=== PATIENT | female | born 1945 | race Caucasian/White ===

== ENCOUNTER → 2017-09-26 15:42 | Outpatient (CLI) | payer MEDICARE, SELFPAY ==
--- NOTE | 2017-09-26 15:48 | XR_ITS ---
XR chest 2V HISTORY: ITS.REASON: FEVER,PERSISTENT DISCHARGE FROM TRACH ORDERING PHYSICIAN: Hema Velazquez PATIENT AGE: 72 years COMPARISON: 02/23/2014 FINDINGS: There is a tracheostomy tube present in satisfactory position. Unremarkable cardiovascular structures. No lobar consolidation or collapse is evident. Clips are present of the left lower hemithorax prior mastectomy. Degenerative changes thoracic spine. A PEG tube is also present. IMPRESSION: 1. PEG tube and gastrostomy tube present. 2. No acute finding 3. Prior left mastectomy
== END ==
PROVIDERS: PCP Internal Medicine; Visit Provider Internal Medicine
DX: R50.81 Fever presenting with conditions classified elsewhere (principal); J95.09 Other tracheostomy complication
CPT/HCPCS: 71046

== ENCOUNTER → 2017-09-27 12:40 | Outpatient (REF) | payer MEDICARE, SELFPAY ==
[2017-09-27 12:45] LABS: Adenovirus F 40/41, stool Not Detected (NotDetected); Astrovirus Not Detected (NotDetected); Campylobacter Not Detected (NotDetected); Clostridium Difficile A/B, PCR Not Detected (NotDetected); Cryptosporidium Not Detected (NotDetected); Cyclospora Cayetanesis Not Detected (NotDetected); Entamoeba histolytica Not Detected (NotDetected); Enteroaggregative E coli Not Detected (NotDetected); Enteropathogenic E coli Not Detected (NotDetected); Enterotoxigenic E coli Not Detected (NotDetected); Giardia lamblia Not Detected (NotDetected); Norovirus Not Detected (NotDetected); Plesimonas Shigalloides, PCR Not Detected (NotDetected); Rotavirus A Not Detected (NotDetected); Salmonella, PCR Not Detected (NotDetected); Sapovirus Not Detected (NotDetected); Shiga-like toxin E coli Not Detected (NotDetected); Shigella Enterovasive E coli Not Detected (NotDetected); Vibrio Cholerae Not Detected (NotDetected); Vibrio, PCR Not Detected (NotDetected); Yersinia Entercolitica, PCR Not Detected (NotDetected)
[2017-09-27 14:17] LABS: Occult Blood,Stool Negative (Negative)
== END ==
LOC: LAB 12:40
PROVIDERS: Visit Provider Internal Medicine
DX: R19.7 Diarrhea, unspecified (principal)
CPT/HCPCS: 82272; 87205; 87507; G0328

== ENCOUNTER 2017-09-28 13:07 | Emergency (ER) | payer MEDICARE, SELFPAY ==
[2017-09-28 13:31] VITALS: BP 135/64; PULSE 59; RESP 17; TEMP 37.2; O2SAT 99; BMI 25.4
[2017-09-28 13:37] VITALS: BMI 27.4
--- NOTE | 2017-09-28 13:48 | XR_ITS ---
XR chest 2V HISTORY: ITS.REASON: cough and hemoptysis ORDERING PHYSICIAN: Kristi Marks MD PATIENT AGE: 72 years COMPARISON: 09/26/2017 FINDINGS: Tracheostomy tube remains in place. Lungs remain clear with chronic changes in the right upper lobe. Prior left mastectomy. Degenerative change thoracic spine. Normal heart size. IMPRESSION: No change with no acute finding. Tracheostomy tube remains in place
--- NOTE | 2017-09-28 13:50 | HMH.EDSOB ---
ED Disposition Clinical Impression: Hemoptysis, Tracheostomy complication, DVT (deep venous thrombosis), Renal insufficiency Disposition: Home, Self-Care Condition on Discharge: Fair Additional Instructions: 1- reduce elquis to 2.5 po bid. 2- no deep agreesive suctions. 3- right and left side chest percussion. 4- allow the patient to cough. 5- finish omnicewf. 6- see Dr Velazquez in AM. 7- return if needed. - Critical Care Critical Care Time: No Attestation: On , the high probability of a clinically significant, sudden or life threatening deterioration of the following system(s) required my full and direct attention, intervention and personal management. The time I documented below is in addition to time spent performing reported procedures but includes the following listed in this critical care notation. Medical Decision Making - Medical Records Medical records reviewed: Yes: I reviewed the patient's medical records. Vital Signs: 09/28/17 13:31 Temperature 99.0 F Temperature Source Oral Pulse Rate [Right Brachial] 59 L Respiratory Rate 17 Blood Pressure [Right Arm] 135/64 Blood Pressure Mean [Right Arm] 87 Blood Pressure Source [Right Arm] Automatic Cuff Blood Pressure Position [Right Arm] Sitting 02 Sat by Pulse Oximetry 99 Oxygen Delivery Method Trach Collar - Lab Data Lab Results 09/28/17 13:43: PT 10.9, INR 1.01, APTT 28.5 09/28/17 13:45: WBC 3.9 L, RBC 3.47 L, Hgb 10.5 L, Hct 30.7 L, MCV 88.4, MCH 30.3, MCHC 34.2, RDW 16.6, Plt Count 182, MPV 8.0, Neut % (Auto) 53.0, Lymph % (Auto) 37.5, [place] % (Auto) 7.4, Eos % (Auto) 1.7, Baso % (Auto) 0.5, Neut # (Auto) 2.1, Lymph # (Auto) 1.5, [place] # (Auto) 0.3, Eos # (Auto) 0.1, Baso # (Auto) 0.0 09/28/17 13:45: Sodium 134 L, Potassium 4.2, Chloride 99, Carbon Dioxide 29, Anion Gap 10.2, BUN 48 H, Creatinine 1.14 H, Estimated Creat Clear 52, Estimated GFR 47 L, Est GFR ( Amer) 57 L, Glucose 107 H, Calcium 8.6, Total Bilirubin 0.2, AST 21, ALT 35, Alkaline Phosphatase 152 H, Total Protein 6.8, Albumin 3.2 L, Globulin 3.6 H, Albumin/Globulin Ratio 0.9 L Result diagrams: 09/28/17 13:45 09/28/17 13:45 Orders (Tests/Meds): ORDERS Category Date Time Status Lactic Acid Stat Lab 09/28/17 13:45 Received Rapid Influenza A&B Antigens Stat Lab 09/28/17 13:41 Ordered Blood Culture Stat Micro 09/28/17 14:11 Ordered Blood Culture Stat Micro 09/28/17 14:11 Ordered - Charly Inquiry Pt receiving controlled substance: No Charly was queried for this patient: No Medical Decision Making Narrative: 72 years old with the chronic renal disease she is not a candidate for CTA at this point. No active bleeding. Discussed with the patient and her daughter we would be risking acute renal failure if we use a dye for a vascular study. Meanwhile she is on anticoagulation with elquis 5 mg BId and aggressive suction, this seems to be the culprit reason for her hemoptysis at this point. After weighing the pros and cons we decided to be conservative use a regular chest x-ray basic labs and change dissection technique, addition to chest percussion. I sopke with Dr. Velazquez her pcp who agreed with above plan and reducing Eliquis to 2.5 twice daily Resp/SOB HPI - General Chief Complaint: Upper Respiratory Infection Stated Complaint: BLEEDING OUT OF HER TRACH Mode of Arrival: Ambulatory Limitations: pt has a trach Description of Symptoms (Recalled from ER Triage Doc. by RN): pt was recently in the hospital at , had a traceostomy placed in july. reports bad cough for the last few days, with blood tinged mucous . daughter reports pt went to see pcp Dr. Velazquez two days ago, had a chest xray, was reported negative for pneumonia. reports mild body aches and low grade fever. - History of Present Illness 72 yrs old white female cancer survival 10 years ago. She underwent 2 left mandibular reconstructive surgery in the winter 2016. it was comp
--- NOTE | 2017-09-28 13:53 | ED_ITS ---
ED Disposition Clinical Impression: Hemoptysis, Tracheostomy complication, DVT (deep venous thrombosis), Renal insufficiency Disposition: Home, Self-Care Condition on Discharge: Fair Additional Instructions: 1- reduce elquis to 2.5 po bid. 2- no deep agreesive suctions. 3- right and left side chest percussion. 4- allow the patient to cough. 5- finish omnicewf. 6- see Dr Velazquez in AM. 7- return if needed. - Critical Care Critical Care Time: No Attestation: On , the high probability of a clinically significant, sudden or life threatening deterioration of the following system(s) required my full and direct attention, intervention and personal management. The time I documented below is in addition to time spent performing reported procedures but includes the following listed in this critical care notation. Medical Decision Making - Medical Records Medical records reviewed: Yes: I reviewed the patient's medical records. Vital Signs: 09/28/17 13:31 Temperature 99.0 F Temperature Source Oral Pulse Rate [Right Brachial] 59 L Respiratory Rate 17 Blood Pressure [Right Arm] 135/64 Blood Pressure Mean [Right Arm] 87 Blood Pressure Source [Right Arm] Automatic Cuff Blood Pressure Position [Right Arm] Sitting 02 Sat by Pulse Oximetry 99 Oxygen Delivery Method Trach Collar - Lab Data Lab Results 09/28/17 13:43: PT 10.9, INR 1.01, APTT 28.5 09/28/17 13:45: WBC 3.9 L, RBC 3.47 L, Hgb 10.5 L, Hct 30.7 L, MCV 88.4, MCH 30.3, MCHC 34.2, RDW 16.6, Plt Count 182, MPV 8.0, Neut % (Auto) 53.0, Lymph % ( Auto) 37.5, [place] % (Auto) 7.4, Eos % (Auto) 1.7, Baso % (Auto) 0.5, Neut # (Auto ) 2.1, Lymph # (Auto) 1.5, [place] # (Auto) 0.3, Eos # (Auto) 0.1, Baso # (Auto) 0.0 09/28/17 13:45: Sodium 134 L, Potassium 4.2, Chloride 99, Carbon Dioxide 29, Anion Gap 10.2, BUN 48 H, Creatinine 1.14 H, Estimated Creat Clear 52, Estimated GFR 47 L, Est GFR ( Amer) 57 L, Glucose 107 H, Calcium 8.6, Total Bilirubin 0.2, AST 21, ALT 35, Alkaline Phosphatase 152 H, Total Protein 6.8, Albumin 3.2 L, Globulin 3.6 H, Albumin/Globulin Ratio 0.9 L Result diagrams: 09/28/17 13:45 09/28/17 13:45 Orders (Tests/Meds): ORDERS Category Date Time Status Lactic Acid Stat Lab 09/28/17 13:45 Received Rapid Influenza A&B Antigens Stat Lab 09/28/17 13:41 Ordered Blood Culture Stat Micro 09/28/17 14:11 Ordered Blood Culture Stat Micro 09/28/17 14:11 Ordered - Charly Inquiry Pt receiving controlled substance: No Charly was queried for this patient: No Medical Decision Making Narrative: 72 years old with the chronic renal disease she is not a candidate for CTA at this point. No active bleeding. Discussed with the patient and her daughter we would be risking acute renal failure if we use a dye for a vascular study. Meanwhile she is on anticoagulation with elquis 5 mg BId and aggressive suction , this seems to be the culprit reason for her hemoptysis at this point. After weighing the pros and cons we decided to be conservative use a regular chest x- ray basic labs and change dissection technique, addition to chest percussion. I sopke with Dr. Velazquez her pcp who agreed with above plan and reducing Eliquis to 2.5 twice daily Resp/SOB HPI - General Chief Complaint: Upper Respiratory Infection Stated Complaint: BLEEDING OUT OF HER TRACH Mode of Arrival: Ambulatory
[2017-09-28 14:05] LABS: Alanine Aminotransferase 35 U/L (12-78); Albumin Level 3.2 gm/dL (3.4-5.0); Albumin/Globulin Ratio 0.9 (1.1-1.8); Alkaline Phosphatase 152 U/L (46-116); Anion Gap 10.2 mEq/L (5-15); Aspartate Amino Transferase 21 U/L (15-37); Bilirubin,Total 0.2 mg/dL (0.2-1.0); Blood Urea Nitrogen 48 mg/dL (7-18); Calcium 8.6 mg/dL (8.5-10.1); Carbon Dioxide 29 mmol/L (21.0-32.0); Chloride 99 mmol/L (98-107); Creatinine Clearance Estimated 52 mL/min (0-300); Creatinine,Serum 1.14 mg/dL (0.55-1.02); Estimated Glomerular Filt Rate 47 ml/min (>60); GFR (African American) 57 ML/MIN (>60); Globulin 3.6 gm/dl (1.3-3.2); Glucose 107 mg/dL (74-106); Potassium 4.2 mmoL/L (3.5-5.1); Sodium 134 mmol/L (136-145); Total Protein,Serum 6.8 gm/dL (6.4-8.2)
[2017-09-28 14:10] LABS: Basophils % 0.5 % (0.1-2.0); Eosinophils # 0.1 K/mm3 (0.0-0.4); Eosinophils % 1.7 % (0.1-12.0); Hematocrit 30.7 % (37.0-47.0); Hemoglobin 10.5 g/dL (12.2-16.2); Lymphocytes # 1.5 K/mm3 (0.7-4.5); Lymphocytes % 37.5 K/mm3 (10-50); Mean Corpuscular HGB Conc 34.2 g/dL (31.8-35.4); Mean Corpuscular Hemoglobin 30.3 pg (27.0-31.2); Mean Corpuscular Volume 88.4 fl (81-99); Monocytes # 0.3 K/mm3 (0.1-1.0); Monocytes % 7.4 % (1.7-9.3); Neutrophils # 2.1 K/mm3 (1.8-7.8); Platelet Count 182 K/mm3 (142-424); Red Blood Count 3.47 M/mm3 (4.20-5.40); Red Cell Distribution Width 16.6 % (11.5-17.5); White Blood Count 3.9 K/mm3 (4.8-10.8)
[2017-09-28 14:28] LABS: Activated Partial Thrombo Time 28.5 seconds (23.6-34.0); INR 1.01 (0.9-1.1); Prothrombin Time 10.9 seconds (9.4-11.8)
[2017-09-28 14:56] VITALS: BP 133/53; PULSE 88; RESP 16; TEMP 36.8; O2SAT 96
== END 2017-09-28 14:57 | disposition home or self-care (01) ==
PROVIDERS: Emergency Provider Emergency Medicine; PCP Internal Medicine
DX: R04.2 Hemoptysis (principal); J95.00 Unspecified tracheostomy complication; N28.9 Disorder of kidney and ureter, unspecified; Z79.01 Long term (current) use of anticoagulants; Z88.1 Allergy status to other antibiotic agents; Z79.899 Other long term (current) drug therapy; Z86.718 Personal history of other venous thrombosis and embolism
CPT/HCPCS: 71046; 80053; 85025; 85610; 85730; 87040; 99283

== ENCOUNTER → 2018-09-14 16:48 | Outpatient (CLI) | payer MEDICARE, SELFPAY | PROVIDERS: Visit Provider Internal Medicine | DX: L02.213 Cutaneous abscess of chest wall (principal) | CPT/HCPCS: 87070; 87205 ==

== ENCOUNTER → 2021-05-14 14:25 | Outpatient (CLI) | payer MEDICARE, SELFPAY ==
[2021-05-14 14:52] LABS: Basophils % 0.5 % (0.1-2.0); Eosinophils # 0.1 K/mm3 (0.0-0.4); Hematocrit 34.8 % (37.0-47.0); Hemoglobin 11.3 g/dL (12.2-16.2); Lymphocytes # 1.3 K/mm3 (0.7-4.5); Lymphocytes % 19.7 % (10-50); Mean Corpuscular HGB Conc 32.5 g/dL (31.8-35.4); Mean Corpuscular Hemoglobin 31.2 pg (27.0-31.2); Mean Corpuscular Volume 96.2 fl (81-99); Mean Platelet Volume 9.7 fl (7.4-10.4); Monocytes # 0.3 K/mm3 (0.1-1.0); Monocytes % 4.9 % (1.7-9.3); Neutrophils % 72.9 % (37.0-80.0); Platelet Count 210 K/mm3 (142-424); Red Blood Count 3.61 M/mm3 (4.20-5.40); Red Cell Distribution Width 17.4 % (11.5-17.5); White Blood Count 6.8 K/mm3 (4.8-10.8)
[2021-05-14 15:36] LABS: Alanine Aminotransferase 9 U/L (12-78); Albumin Level 3.9 g/dl (3.5-5.0); Albumin/Globulin Ratio 1.6 (1.1-1.8); Alkaline Phosphatase 81 U/L (38-126); Anion Gap 11.3 mEq/L (5-15); Aspartate Amino Transferase 26 U/L (14-36); Bilirubin,Total 0.4 mg/dl (0.2-1.3); Blood Urea Nitrogen 39 mg/dl (7-17); Calcium 9.4 mg/dl (8.4-10.2); Carbon Dioxide 32 mmol/L (22.0-30.0); Chloride 99 mmol/L (98-107); Chol/HDL Ratio 4.4 (1-3.5); Cholesterol 154 mg/dl (140-200); Estimated Glomerular Filt Rate 48 ml/min (>60); GFR (African American) 59 ML/MIN (>60); Globulin 2.4 g/dL (1.3-3.2); Glucose 80 mg/dl (74-100); HDL Cholesterol 35 mg/dl (40-60); Potassium 4.3 mmoL/L (3.5-5.1); Sodium 138 mmol/L (136-145); Total Protein,Serum 6.3 g/dl (6.3-8.2); Triglycerides 146 mg/dl (30-150); Uric Acid 3.1 mg/dl (2.5-6.2); VLDL Cholesterol 29 mg/dL (0-40)
[2021-05-14 15:47] LABS: Direct LDL Cholesterol 84.33 mg/dL (100-129)
[2021-05-14 16:29] LABS: Hemoglobin A1C 5.5 % (4.0-6.0)
== END ==
PROVIDERS: Visit Provider Internal Medicine
DX: I25.10 Atherosclerotic heart disease of native coronary artery without angina pectoris (principal); I10 Essential (primary) hypertension; E11.59 Type 2 diabetes mellitus with other circulatory complications; E78.5 Hyperlipidemia, unspecified; N31.9 Neuromuscular dysfunction of bladder, unspecified; N18.9 Chronic kidney disease, unspecified
CPT/HCPCS: 80053; 80061; 83036; 84550; 85025

== ENCOUNTER → 2021-06-21 13:30 | Outpatient (CLI) | payer MEDICARE, SELFPAY | PROVIDERS: PCP Internal Medicine; Visit Provider Nurse Practitioner | DX: U07.1 COVID-19 (principal) | CPT/HCPCS: C9803; U0003; U0005 ==

== ENCOUNTER → 2021-06-23 08:04 | Outpatient (CLI) | payer MEDICARE, SELFPAY ==
[2021-06-23 08:16] VITALS: BP 114/60; PULSE 51; RESP 18; TEMP 36.5; O2SAT 100
== END ==
PROVIDERS: PCP Internal Medicine; Visit Provider Internal Medicine
DX: U07.1 COVID-19 (principal); Z23 Encounter for immunization
CPT/HCPCS: 96365

== ENCOUNTER → 2022-04-18 17:15 | Outpatient (CLI) | payer MEDICARE, SELFPAY ==
[2022-04-18 20:37] LABS: Basophils % 0.8 % (0.1-2.0); Eosinophils # 0.1 K/mm3 (0.0-0.4); Eosinophils % 2.2 % (0.1-12.0); Hematocrit 36.6 % (37.0-47.0); Lymphocytes # 1.5 K/mm3 (0.7-4.5); Lymphocytes % 26.5 % (10-50); Mean Corpuscular HGB Conc 32.7 g/dL (31.8-35.4); Mean Corpuscular Hemoglobin 33.1 pg (27.0-31.2); Mean Corpuscular Volume 101.3 fl (81-99); Mean Platelet Volume 11.4 fl (7.4-10.4); Monocytes # 0.4 K/mm3 (0.1-1.0); Monocytes % 6.7 % (1.7-9.3); Neutrophils # 3.6 K/mm3 (1.8-7.8); Neutrophils % 63.8 % (37.0-80.0); Platelet Count 178 K/mm3 (142-424); Red Blood Count 3.61 M/mm3 (4.20-5.40); Red Cell Distribution Width 15.5 % (11.5-17.5); White Blood Count 5.6 K/mm3 (4.8-10.8)
[2022-04-18 21:05] LABS: Chloride 96 mmol/L (98-107); Potassium 4.9 mmoL/L (3.5-5.1); Sodium 138 mmol/L (136-145)
[2022-04-18 21:07] LABS: Alanine Aminotransferase 13 U/L (12-78); Alkaline Phosphatase 92 U/L (38-126); Aspartate Amino Transferase 35 U/L (14-36); Bilirubin,Total 0.2 mg/dl (0.2-1.3); Blood Urea Nitrogen 34 mg/dl (7-17); Estimated Glomerular Filt Rate 54 ml/min (>60); GFR (African American) 65 ML/MIN (>60)
[2022-04-18 21:08] LABS: Albumin Level 4.2 g/dl (3.5-5.0); Anion Gap 16.9 mEq/L (5-15); Carbon Dioxide 30 mmol/L (22.0-30.0); Chol/HDL Ratio 4.5 (1-3.5); Cholesterol 167 mg/dl (140-200); Globulin 2.1 g/dL (1.3-3.2); HDL Cholesterol 37 mg/dl (40-60); Total Protein,Serum 6.3 g/dl (6.3-8.2); Triglycerides 150 mg/dl (30-150); VLDL Cholesterol 30 mg/dL (0-40)
[2022-04-18 21:14] LABS: Calcium 8.9 mg/dl (8.4-10.2); Glucose 75 mg/dl (74-100)
[2022-04-18 21:19] LABS: Direct LDL Cholesterol 85.71 mg/dL (100-129)
[2022-04-18 21:39] LABS: Thyroid Stimulating Hormone 1.78 uIU/mL (0.465-4.68)
[2022-04-18 22:11] LABS: Uric Acid 3.1 mg/dl (2.5-6.2)
[2022-04-18 22:13] LABS: Hemoglobin A1C 5.2 % (4.0-6.0)
[2022-04-20 19:01] LABS: Folate > 20.00 ng/mL; Vitamin B12 > 1000 pg/mL (239-931)
== END ==
PROVIDERS: PCP Internal Medicine; Visit Provider Internal Medicine
DX: E11.59 Type 2 diabetes mellitus with other circulatory complications (principal); I25.10 Atherosclerotic heart disease of native coronary artery without angina pectoris; I10 Essential (primary) hypertension; J44.9 Chronic obstructive pulmonary disease, unspecified; N31.9 Neuromuscular dysfunction of bladder, unspecified; M10.9 Gout, unspecified; D75.89 Other specified diseases of blood and blood-forming organs; Z85.819 Personal history of malignant neoplasm of unspecified site of lip, oral cavity, and pharynx; Z79.84 Long term (current) use of oral hypoglycemic drugs
CPT/HCPCS: 80053; 80061; 82607; 82746; 83036; 84443; 84550; 85025

== ENCOUNTER 2022-07-22 14:19 | Emergency (ER) | payer MEDICARE, SELFPAY ==
[2022-07-22] VITALS (7 sets, daily range): BP systolic 165–220; BP diastolic 75–96; PULSE 51–70; RESP 16–20; TEMP 36.8; O2SAT 98–99; BMI 22.1
--- NOTE | 2022-07-22 14:27 | CT_ITS ---
FINAL REPORT TECHNIQUE: Thin section axial CT images of the facial bones and sinuses were obtained without contrast. Coronal reformatted images were also obtained. This study was performed with techniques to keep radiation doses as low as reasonably achievable, (ALARA). Individualized dose reduction techniques using automated exposure control or adjustment of mA and/or kV according to the patient's size were employed. CLINICAL HISTORY: fall on eloquis/s/p cancer with facial reconstruct FINDINGS: CT FACIAL BONES There are bilateral nasal bone fractures displaced to the left. There is nasal soft tissue swelling with soft tissue air. The orbits are intact.The globes are intact.No sinus fluid levels are identified.No soft tissue mass is seen. There are postoperative changes throughout the mandible. There are postoperative changes of the face and neck. IMPRESSION: Bilateral nasal bone fractures displaced to the left and nasal soft tissue swelling with soft tissue air. Reviewed, Interpreted and Dictated by Bobby Restrepo III, MD Transcribed by Tequila Sibley Authenticated and [facility]
--- NOTE | 2022-07-22 14:27 | XR_ITS ---
FINAL REPORT CLINICAL HISTORY: fall, right knee pain FINDINGS: Two views of the right knee were obtained. There is no evidence of fracture or dislocation. There are postoperative changes of right fibular resection. There are mild degenerative changes. Vascular calcifications are noted. There is no evidence of joint effusion. No localized soft tissue abnormality is identified. IMPRESSION: No acute abnormality identified. Reviewed, Interpreted and Dictated by Bobby Restrepo III, MD Transcribed by Yaneth Leavitt Authenticated and [facility]
--- NOTE | 2022-07-22 14:27 | XR_ITS ---
FINAL REPORT CLINICAL HISTORY: fall, left knee pain FINDINGS: Two views of the left knee were obtained. There is no evidence of fracture or dislocation. There are postoperative changes of left fibular resection. There are mild degenerative changes in vascular calcifications are noted. There is no evidence of joint effusion. No localized soft tissue abnormality is seen. There is no evidence of foreign body. IMPRESSION: No acute abnormality identified. Reviewed, Interpreted and Dictated by Bobby Restrepo III, MD Transcribed by Yaneth Leavitt Authenticated and [facility]
--- NOTE | 2022-07-22 14:27 | XR_ITS ---
FINAL REPORT CLINICAL HISTORY: fall FINDINGS: RIGHT WRIST Three views were obtained. There is no acute fracture or dislocation. There are moderate degenerative changes at the 1st carpometacarpal joint. Mild degenerative changes are seen elsewhere. No soft tissue abnormality is identified. IMPRESSION: No acute process. Reviewed, Interpreted and Dictated by Bobby Restrepo III, MD Transcribed by Yaneth Leavitt Authenticated and . [facility]
--- NOTE | 2022-07-22 14:27 | XR_ITS ---
FINAL REPORT CLINICAL HISTORY: fall FINDINGS: LEFT HAND: 3 views of the left hand were obtained. There are moderate and severe degenerative changes. Visualized joint spaces are normally aligned. Soft tissues are unremarkable. IMPRESSION: No acute bony abnormality. Reviewed, Interpreted and Dictated by Bobby Restrepo III, MD Transcribed by Yaneth Leavitt Authenticated and [facility]
--- NOTE | 2022-07-22 14:27 | CT_ITS ---
FINAL REPORT CLINICAL HISTORY: fall on eloquis/s/p cancer with facial reconstruct FINDINGS: Axial images of the head were obtained without contrast. Coronal reformatted images were also obtained. This study was performed with techniques to keep radiation doses as low as reasonably achievable (ALARA). Individualized dose reduction techniques using automated exposure control or adjustment of mA and/or kV according to the patient's size were employed. There is generalized age-appropriate atrophy. Periventricular low-attenuation areas are seen consistent with mild chronic ischemic changes. There is no evidence of intracranial hemorrhage or mass. There is no evidence of acute infarct. There is no evidence of shift of the midline structures. IMPRESSION: Atrophy and mild periventricular chronic ischemic changes. No acute intracranial abnormality identified. Reviewed, Interpreted and Dictated by Bobby Restrepo III, MD Transcribed by Tequila Sibley Authenticated and [facility]
--- NOTE | 2022-07-22 14:27 | CT_ITS ---
FINAL REPORT CLINICAL HISTORY: fall on eloquis/s/p cancer with facial reconstruct FINDINGS: Axial CT images of the cervical spine were obtained without contrast. Sagittal and coronal reformatted images were also obtained. This study was performed with techniques to keep radiation doses as low as reasonably achievable (ALARA). Individualized dose reduction techniques using automated exposure control or adjustment of mA and/or kV according to the patient's size were employed. There is no evidence of fracture or dislocation. There is mild anterolisthesis of C3 on C4. There are moderate and severe degenerative changes with multilevel disc osteophyte complexes and multilevel neural foraminal narrowing. There is mild central canal stenosis at C5-6. No paraspinous soft tissue abnormality is seen. There is scarring in the lung apices. IMPRESSION: No fracture or acute bony abnormality identified. Reviewed, Interpreted and Dictated by Bobby Restrepo III, MD Transcribed by Tequila Sibley Authenticated and [facility]
--- NOTE | 2022-07-22 14:27 | XR_ITS ---
FINAL REPORT CLINICAL HISTORY: fall COMPARISON: 09/08/2018 FINDINGS: RIGHT SHOULDER 3 views demonstrate no acute fracture or dislocation. There are moderate degenerative changes. There is superior subluxation of the humerus. The visualized bony structures are well aligned. No soft tissue abnormality is seen. IMPRESSION: No acute process. Reviewed, Interpreted and Dictated by Bobby Restrepo III, MD Transcribed by Yaneth Leavitt Authenticated and [facility]
--- NOTE | 2022-07-22 14:27 | XR_ITS ---
FINAL REPORT CLINICAL HISTORY: fall FINDINGS: LEFT WRIST Three views were obtained. There is no acute fracture or dislocation. There are moderate degenerative changes at the 1st carpometacarpal joint. Mild degenerative changes are seen elsewhere. No soft tissue abnormality is identified. IMPRESSION: No acute process. Reviewed, Interpreted and Dictated by Bobby Restrepo III, MD Transcribed by Yaneth Leavitt Authenticated and . [facility]
--- NOTE | 2022-07-22 14:27 | XR_ITS ---
FINAL REPORT CLINICAL HISTORY: fall FINDINGS: RIGHT HAND Three views were obtained. There is no acute fracture or dislocation. There are moderate and severe degenerative changes, worse involving the 2nd 3rd digits. No soft tissue abnormality is identified. IMPRESSION: No acute process. Reviewed, Interpreted and Dictated by Bobby Restrepo III, MD Transcribed by Yaneth Leavitt Authenticated and [facility]
--- NOTE | 2022-07-22 14:30 | HMH.EDGENADL ---
Discharge Plan Disposition Patient Disposition: Home, Self-Care Condition: Fair Chief Complaint: Fall Prescriptions Prescriptions: No Action bupropion HCl (smoking deter) 150 MG Tab.Er.12h 150 mg PO DAILY prednisone 20 MG Tablet 20 mg PO DAILY tramadol [Ultram] 50 MG Tablet 50 mg PO Q4H cefdinir 125 MG/5 ML Bottle 125 mg PO BID allopurinol 300 MG Tablet 300 mg PO DAILY metoprolol succinate 25 MG Tab.Er.24h 25 mg PO DAILY ondansetron 4 MG Tab.Rapdis 4 mg sublingual Q6 PRN (Reason: Vomiting) melatonin-pyridoxine HCl (B6) 1 EACH Tablet 1 ea PO HS amlodipine-olmesartan 1 EACH Tablet 1 ea PO DAILY levetiracetam [Keppra XR] 500 MG Tab.Er.24h 500 mg PO BID apixaban [Eliquis] 5 MG Tablet 5 mg PO DAILY Referrals Follow up/Referrals: Hema Velazquez MD [Primary Care Provider] - See instructions Activity Restrictions/Add. Instructions Additional Instructions/Restrictions: At this time it was felt you are safe to be discharged home. If new or worsening symptoms please do not hesitate to return for continued evaluation. Please follow-up with your family doctor for continued evaluation of your nasal bone fracture to assess need for ENT referral when swelling resolves. Clinical Impressions Clinical Impression: Fall, Fracture closed, nasal bone Discharge ED Provider: Kendall Jerez General Adult HPI General Chief complaint: Fall Stated complaint: Fall@home 07/22 Nose/mouth pain, knee pain Time Seen by Provider: 07/22/22 14:30 History of Present Illness HPI narrative: Patient is a 77-year-old female with past medical history of throat cancer status post complete reconstruction, blood clots on Eliquis who presents emergency department for evaluation of traumatic injury sustained in a fall. Patient was pushing a trash can when she fell forward onto her face without loss of consciousness. Patient is complaining of nose pain, bilateral hand pain, right shoulder pain, bilateral knee pain. No other acute complaints at this time. Tdap up-to-date. Related Data Home Medications Medication Instructions Recorded Confirmed allopurinol 300 mg tablet 300 mg PO DAILY gout 09/28/17 09/28/17 amlodipine 5 mg-olmesartan 40 mg 1 ea PO DAILY blood pressure 09/28/17 09/28/17 tablet apixaban 5 mg tablet (Eliquis) 5 mg PO DAILY Blood thinner 09/28/17 09/28/17 bupropion HCl (smoking deter) 150 150 mg PO DAILY mood 09/28/17 09/28/17 mg tablet,12 hr sustained-release(smoking deterrent) cefdinir 125 mg/5 mL oral 125 mg PO BID Infection 09/28/17 09/28/17 suspension levetiracetam 500 mg 500 mg PO BID seizures 09/28/17 09/28/17 tablet,extended release 24 hr (Keppra XR) melatonin-pyridoxine HCl (vitamin 1 ea PO HS sleep 09/28/17 09/28/17 B6) 3 mg-10 mg tablet metoprolol succinate 25 mg 25 mg PO DAILY blood pressure 09/28/17 09/28/17 tablet,extended release 24 hr ondansetron 4 mg disintegrating 4 mg sublingual Q6 PRN Vomiting 09/28/17 09/28/17 tablet prednisone 20 mg tablet 20 mg PO DAILY Breathing problems 09/28/17 09/28/17 tramadol 50 mg tablet (Ultram) 50 mg PO Q4H Pain 09/28/17 09/28/17 Allergies Allergy/AdvReac Type Severity Reaction Status Date / Time piperacillin [From ZOSYN] Allergy Intermediate I-RASH Verified 06/23/21 09:38 tazobactam [From ZOSYN] Allergy Intermediate I-RASH Verified 06/23/21 09:38 [facility] Disclaimer: The information contained in this section may have been updated after the patient was seen, as this information can be updated by other users. Social History Smoking Status: Former smoker alcohol intake: never current occupational status: disabled Travel in the last 8 weeks: None ROS Obtained: Yes Systems reviewed as appropriate & no additional complaints except as documented Physical Exam General General appearance: alert and in no apparent distress Head Head exam: normocephalic and oth
--- NOTE | 2022-07-22 14:31 | CT_ITS ---
FINAL REPORT TECHNIQUE: Thin section axial CT images with coronal and sagittal reformats were performed through the neck. This study was performed with techniques to keep radiation doses as low as reasonably achievable (ALARA). Individualized dose reduction techniques using automated exposure control or adjustment of mA and/or kV according to the patient's size were employed. CLINICAL HISTORY: fall, cancer s/p reconstruct FINDINGS: There widespread postoperative changes of the face and anterior neck. There is fluid or debris in the hypopharynx. The nasopharynx, oropharynx and larynx are unremarkable. There are several right thyroid nodules measuring up to 8 mm. There are vascular calcifications. A presumed tracheostomy is present. There is mild scarring in the lung apices. IMPRESSION: Fluid or debris in the hypopharynx. Widespread postoperative changes of the face and anterior neck. Reviewed, Interpreted and Dictated by Bobby Restrepo III, MD Transcribed by Tequila Sibley Authenticated and [facility]
--- NOTE | 2022-07-22 14:34 | PC.NURSE ---
at bedside upon pt arrival
--- NOTE | 2022-07-22 14:36 | PC.NURSE ---
PT UNABLE TO TOLERATE C-COLLAR , TOWEL ROLL PLACED , PT GOING TO CT VIA STRETCHER
== END 2022-07-22 18:23 | disposition home or self-care (01) ==
PROVIDERS: Emergency Provider Emergency Medicine; PCP Internal Medicine
DX: S02.2XXA Fracture of nasal bones, initial encounter for closed fracture (principal); M25.561 Pain in right knee; M25.562 Pain in left knee; M25.511 Pain in right shoulder; M25.522 Pain in left elbow; M25.521 Pain in right elbow; M25.532 Pain in left wrist; M25.531 Pain in right wrist; M79.642 Pain in left hand; M79.641 Pain in right hand; R11.10 Vomiting, unspecified; I10 Essential (primary) hypertension; Z79.01 Long term (current) use of anticoagulants; Z79.52 Long term (current) use of systemic steroids; Z79.899 Other long term (current) drug therapy; Z88.8 Allergy status to other drugs, medicaments and biological substances; Z85.038 Personal history of other malignant neoplasm of large intestine; Z85.21 Personal history of malignant neoplasm of larynx; Z23 Encounter for immunization; Z87.891 Personal history of nicotine dependence
CPT/HCPCS: 70450; 70486; 70490; 72125; 73030; 73100; 73120; 73130; 73560; 90471; 90715; 99285

== ENCOUNTER → 2022-10-18 12:52 | Outpatient (CLI) | payer MEDICARE, SELFPAY ==
[2022-10-18 17:30] LABS: Basophils % 0.6 % (0.1-2.0); Eosinophils # 0.2 K/mm3 (0.0-0.4); Eosinophils % 3.7 % (0.1-12.0); Hematocrit 40.2 % (37.0-47.0); Hemoglobin 12.8 g/dL (12.2-16.2); Lymphocytes # 1.2 K/mm3 (0.7-4.5); Lymphocytes % 26.7 % (10-50); Mean Corpuscular HGB Conc 31.9 g/dL (31.8-35.4); Mean Corpuscular Hemoglobin 32.1 pg (27.0-31.2); Mean Corpuscular Volume 100.8 fl (81-99); Mean Platelet Volume 11.1 fl (7.4-10.4); Monocytes # 0.3 K/mm3 (0.1-1.0); Monocytes % 6.4 % (1.7-9.3); Neutrophils # 2.9 K/mm3 (1.8-7.8); Neutrophils % 62.4 % (37.0-80.0); Platelet Count 172 K/mm3 (142-424); Red Blood Count 3.98 M/mm3 (4.20-5.40); Red Cell Distribution Width 14.8 % (11.5-17.5); White Blood Count 4.6 K/mm3 (4.8-10.8)
[2022-10-18 17:43] LABS: Alanine Aminotransferase 17 U/L (12-78); Albumin Level 4.4 g/dl (3.5-5.0); Alkaline Phosphatase 95 U/L (38-126); Anion Gap 13.8 mEq/L (5-15); Aspartate Amino Transferase 34 U/L (14-36); Bilirubin,Total 0.6 mg/dl (0.2-1.3); Blood Urea Nitrogen 47 mg/dl (7-17); Calcium 9.3 mg/dl (8.4-10.2); Carbon Dioxide 32 mmol/L (22.0-30.0); Chloride 97 mmol/L (98-107); Chol/HDL Ratio 3.9 (1-3.5); Cholesterol 151 mg/dl (140-200); Estimated Glomerular Filt Rate 44 ml/min (>60); GFR (African American) 53 ML/MIN (>60); Globulin 2.2 g/dL (1.3-3.2); Glucose 72 mg/dl (74-100); HDL Cholesterol 39 mg/dl (40-60); Potassium 4.8 mmoL/L (3.5-5.1); Sodium 138 mmol/L (136-145); Total Protein,Serum 6.6 g/dl (6.3-8.2); Triglycerides 151 mg/dl (30-150); VLDL Cholesterol 30 mg/dL (0-40)
[2022-10-18 17:54] LABS: Direct LDL Cholesterol 77.56 mg/dL (100-129)
[2022-10-18 18:01] LABS: Hemoglobin A1C 4.9 % (4.0-6.0)
== END ==
PROVIDERS: PCP Internal Medicine; Visit Provider Internal Medicine
DX: E11.59 Type 2 diabetes mellitus with other circulatory complications (principal); I10 Essential (primary) hypertension; N18.30 Chronic kidney disease, stage 3 unspecified; N31.9 Neuromuscular dysfunction of bladder, unspecified; J44.9 Chronic obstructive pulmonary disease, unspecified; C08.0 Malignant neoplasm of submandibular gland
CPT/HCPCS: 80053; 80061; 83036; 85025

== ENCOUNTER 2023-02-21 08:36 | Day surgery (SDC) | payer MEDICARE, SELFPAY ==
[2023-02-21] VITALS (14 sets, daily range): BP systolic 142–194; BP diastolic 70–106; PULSE 55–85; RESP 17–19; O2SAT 93–100; BMI 21.7
--- NOTE | 2023-02-21 06:43 | IR_ITS ---
APPROVED REPORT Patient Location: Outpatient PROCEDURES Left heart catheterization Left ventriculogram Selective coronary angiogram INDICATION Classic angina pectoris, High pretest likelihood for coronary disease, Unable to tolerate noninvasive stress testing Informed consent was obtained prior to the procedure. COMPLICATIONS None Estimated Blood Loss: Less than 10 mls TECHNIQUE One percent lidocaine used to anesthetize the right anterior aspect of the wrist. The right radial artery was accessed via the Seldinger technique. A 6 Turkish sheath was placed in the right radial artery. 150 mg magnesium sulfate, 800 mcg of nitroglycerin, 1mg Lidocaine and 5000 U Heparin were given through the arterial sheath. The papa catheter was also used to perform left heart catheterization, left ventriculogram and selective coronary angiogram. At the end of the procedure the sheath was removed good hemostasis was achieved using Traclet band, patient was transferred to the postop holding area in stable condition. ANGIOGRAPHIC RESULTS The left main artery Large and normal The left anterior descending artery Has proximal 30% stenosis with a mid vessel 50% stenosis followed by a subtotal occlusion at the distal portion of the mid segment. There is slow filling of the distal LAD The circumflex artery Large and dominant with proximal 30% stenoses. A large first obtuse marginal artery has 40% stenoses in the proximal segment while distally there are tandem calcified 60 to 70% stenoses and a superior branch of this obtuse marginal artery. The inferior branch is 2 mm in diameter and has an ostial 90% stenosis. Distal to the first obtuse marginal artery there is an additional 40 to 50% mid circumflex artery stenosis. 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 Continue medical management. Patient has normal ejection fraction there is no advantage to attempting to revascularize the heavily calcified mid LAD subtotal occlusion. This vessel should respond favorably to medical management 2. Maximize antianginal medications 3. LDL less than 55 to be achieved with high intensity statin Electronically signed by : Bassem Gardiner MD 02/21/2023 14:57:10
[2023-02-21 10:18] LABS: Basophils % 0.4 % (0.1-2.0); Eosinophils # 0.4 K/mm3 (0.0-0.4); Eosinophils % 5.2 % (0.1-12.0); Hematocrit 37.9 % (37.0-47.0); Hemoglobin 11.9 g/dL (12.2-16.2); Lymphocytes # 1.8 K/mm3 (0.7-4.5); Lymphocytes % 25.6 % (10-50); Mean Corpuscular HGB Conc 31.3 g/dL (31.8-35.4); Mean Corpuscular Hemoglobin 31.7 pg (27.0-31.2); Mean Corpuscular Volume 101.2 fl (81-99); Mean Platelet Volume 10.2 fl (7.4-10.4); Monocytes # 0.3 K/mm3 (0.1-1.0); Neutrophils # 4.4 K/mm3 (1.8-7.8); Neutrophils % 63.8 % (37.0-80.0); Platelet Count 192 K/mm3 (142-424); Red Blood Count 3.74 M/mm3 (4.20-5.40); Red Cell Distribution Width 15.8 % (11.5-17.5); White Blood Count 6.9 K/mm3 (4.8-10.8)
[2023-02-21 10:26] LABS: Anion Gap 12.6 mEq/L (5-15); Blood Urea Nitrogen 41 mg/dl (7-17); Calcium 9.8 mg/dl (8.4-10.2); Carbon Dioxide 31 mmol/L (22.0-30.0); Chloride 101 mmol/L (98-107); Creatinine Clearance Estimated 37 mL/min (50-200); Estimated Glomerular Filt Rate 48 ml/min (>60); GFR (African American) 58 ML/MIN (>60); Glucose 94 mg/dl (74-100); INR 0.98 (0.9-1.1); Potassium 4.6 mmoL/L (3.5-5.1); Prothrombin Time 10.6 seconds (10.1-12.5); Sodium 140 mmol/L (136-145)
== END 2023-02-21 15:59 | disposition home or self-care (01) ==
PROVIDERS: PCP Internal Medicine; Visit Provider Internal Medicine
DX: I77.6 Arteritis, unspecified (principal); R00.1 Bradycardia, unspecified; R06.00 Dyspnea, unspecified; R07.9 Chest pain, unspecified; R42 Dizziness and giddiness; I25.118 Atherosclerotic heart disease of native coronary artery with other forms of angina pectoris; Z87.891 Personal history of nicotine dependence; I25.82 Chronic total occlusion of coronary artery; Z79.01 Long term (current) use of anticoagulants; Z79.899 Other long term (current) drug therapy
CPT/HCPCS: 80048; 85025; 85610; 93458; 99152; C1725; C1769; J1644; Q9967

== ENCOUNTER → 2023-04-28 12:24 | Outpatient (CLI) | payer MEDICARE, SELFPAY ==
[2023-04-28 13:31] LABS: Hemoglobin A1C 5.4 % (4.0-6.0)
[2023-04-28 13:52] LABS: Alanine Aminotransferase 17 U/L (12-78); Albumin Level 4.5 g/dl (3.5-5.0); Albumin/Globulin Ratio 1.6 (1.1-1.8); Alkaline Phosphatase 115 U/L (38-126); Anion Gap 13.6 mEq/L (5-15); Aspartate Amino Transferase 33 U/L (14-36); Bilirubin,Total 0.5 mg/dl (0.2-1.3); Blood Urea Nitrogen 42 mg/dl (7-17); Carbon Dioxide 30 mmol/L (22.0-30.0); Chloride 100 mmol/L (98-107); Cholesterol 159 mg/dl (140-200); Estimated Glomerular Filt Rate 48 ml/min (>60); GFR (African American) 58 ML/MIN (>60); Globulin 2.9 g/dL (1.3-3.2); Glucose 84 mg/dl (74-100); HDL Cholesterol 40 mg/dl (40-60); Potassium 4.6 mmoL/L (3.5-5.1); Sodium 139 mmol/L (136-145); Total Protein,Serum 7.4 g/dl (6.3-8.2); Triglycerides 170 mg/dl (30-150); Uric Acid 2.9 mg/dl (2.5-6.2); VLDL Cholesterol 34 mg/dL (0-40)
[2023-04-28 14:03] LABS: Direct LDL Cholesterol 78.97 mg/dL (100-129)
[2023-04-28 14:42] LABS: Vitamin B12 > 1000 pg/mL (239-931)
== END ==
PROVIDERS: PCP Internal Medicine; Visit Provider Internal Medicine
DX: E11.59 Type 2 diabetes mellitus with other circulatory complications (principal); I25.10 Atherosclerotic heart disease of native coronary artery without angina pectoris; I10 Essential (primary) hypertension; J44.9 Chronic obstructive pulmonary disease, unspecified; M10.9 Gout, unspecified; Z85.819 Personal history of malignant neoplasm of unspecified site of lip, oral cavity, and pharynx; Z86.718 Personal history of other venous thrombosis and embolism; Z87.891 Personal history of nicotine dependence
CPT/HCPCS: 80053; 80061; 82607; 83036; 84550

== ENCOUNTER 2023-06-17 17:17 | Emergency (ER) | payer MEDICARE, SELFPAY ==
[2023-06-17 17:45] VITALS: BP 117/86; PULSE 68; RESP 19; TEMP 36.8; O2SAT 98; BMI 21.2
--- NOTE | 2023-06-17 18:12 | EXP.UTC ---
Discharge Plan Disposition Patient Disposition: Home, Self-Care Condition: Good Prescriptions Prescriptions: New azithromycin [Zithromax Z-Luis] 250 mg tablet See Rx Instructions .ROUTE .COMPLEX 5 Days Qty: 6 0RF Rx Instructions: For 250 mg dose pack: take 500 mg today (day 1), then 250 mg for 4 days (days 2-5) No Action allopurinol 300 MG tablet 300 mg PO DAILY metoprolol succinate 25 MG tablet extended release 24 hr 25 mg PO DAILY levetiracetam [Keppra XR] 500 mg tablet extended release 24 hr 500 mg PO DAILY Eliquis 5 mg tablet 2.5 mg PO BID Referrals Follow up/Referrals: Provider,Referral, MD [Primary Care Provider] - See instructions Activity Restrictions/Add. Instructions Additional Instructions/Restrictions: *Monitor Temp, Over the counter Motrin or Tylenol as directed/as needed Tylenol every 4 hours and Motrin every 6 hours (as long as your family doctor has told you that you can take it) for fever or pain. and straight to ER if unable to lower temp less than 101.0 after medication given Take medication as prescribed *Sleep elevated *Humidifier/Vaporizer Follow up with your Family Doctor on Monday if no improvement or any worsening of symptoms Follow up IMMEDIATELY for new or worsening symptoms or no Noticeable improvement over the next 48-72 hours. 911 for difficulty breathing or swallowing Clinical Impressions Clinical Impression: Sinusitis Qualifiers: Sinusitis location: unspecified location Chronicity: unspecified Qualified Code(s): J32.9 - Chronic sinusitis, unspecified Otitis media Qualifiers: Otitis media type: unspecified Laterality: right Qualified Code(s): H66.91 - Otitis media, unspecified, right ear Instructions Patient Instructions: DI for Sinusitis, Sinusitis, Middle Ear Infection Discharge ED Provider: Shalonda Bocanegra [facility] General Stated complaint: cold , swollen mouth , ears hurt Mode of Arrival: Ambulatory Source of Information: Patient Limitations: No Limitations Time Seen by Provider: 06/17/23 18:13 Description of Symptoms (Recalled from Triage Doc. by RN): PATIENT C/O RIGHT EAR ACHE AND REDNESS TO FACE X 2 DAYS HEENT Symptoms (Recalled from RN notes): Yes Resp Symptoms (Recalled from RN notes): No Skin Symptoms (Recalled from RN notes): No MS Symptoms (Recalled from RN notes): No Functional Status (Recalled from RN notes): WNL History of Present Illness Provider Complaint: Patient states that she has been having pain in her right ear for about a week, sinus pain and pressure, having cough and face flush States that her fever has been around 99.5 States that today her ear was feeling worse so she came in to get checked Related Data Home Medications Medication Instructions Recorded Confirmed allopurinol 300 mg tablet 300 mg PO DAILY gout 09/28/17 06/17/23 metoprolol succinate 25 mg 25 mg PO DAILY blood pressure 09/28/17 06/17/23 tablet,extended release 24 hr levetiracetam 500 mg 500 mg PO DAILY seizures 02/16/23 06/17/23 tablet,extended release 24 hr (Keppra XR) apixaban 5 mg tablet (Eliquis) 2.5 mg PO BID Blood thinner 03/15/23 06/17/23 Previous Rx's Medication Instructions Recorded azithromycin 250 mg tablet See Rx Instructions PO .COMPLEX 5 06/17/23 (Zithromax Z-Luis) days #6 tabs Allergies Allergy/AdvReac Type Severity Reaction Status Date / Time Iodinated Contrast Media Allergy Intermediate Anaphylaxis Verified 03/15/23 11:54 piperacillin [From ZOSYN] Allergy Intermediate I-RASH Verified 03/15/23 11:54 tazobactam [From ZOSYN] Allergy Intermediate I-RASH Verified 03/15/23 11:54 vancomycin Allergy Intermediate Anaphylaxis Verified 03/15/23 11:54 Worker's Comp Is this a Worker's Comp case?: No [facility] Disclaimer: The information contained in this section may have been updated after the patient was seen, as this information can be updated by other users. Medical History (Reviewed 03/15/23
[2023-06-17 18:35] VITALS: BP 117/86; PULSE 68; RESP 19; TEMP 36.8; O2SAT 98
== END 2023-06-17 18:37 | disposition home or self-care (01) ==
PROVIDERS: Emergency Provider Nurse Practitioner
DX: J01.90 Acute sinusitis, unspecified (principal); H66.91 Otitis media, unspecified, right ear; R05.9 Cough, unspecified; I25.119 Atherosclerotic heart disease of native coronary artery with unspecified angina pectoris; I11.9 Hypertensive heart disease without heart failure
CPT/HCPCS: 99204; 99212; G0463

== ENCOUNTER 2023-10-03 20:36 | Emergency (ER) | payer MEDICARE, SELFPAY ==
[2023-10-03 20:48] VITALS: BP 182/85; PULSE 52; RESP 20; TEMP 36.1; O2SAT 100; BMI 21.5
[2023-10-03 21:01] VITALS: BP 201/78; PULSE 50; RESP 18; O2SAT 98
--- NOTE | 2023-10-03 21:05 | XR_ITS ---
PROCEDURE INFORMATION: Exam: XR Abdomen Exam date and time: 10/03/2023 9:03 PM Age: 78 years old Clinical indication: Device placement; Gi device; Peg tube; Additional info: Peg placement confirmation TECHNIQUE: Imaging protocol: Radiologic exam of the abdomen. Views: Frontal supine view of the abdomen. 1 View. COMPARISON: CR CXR2V XR chest 2V 09/08/2018 8:08 PM FINDINGS: Tubes, catheters and devices: Oral contrast administered via percutaneous gastrostomy tube is seen within the gastric body. No evidence of contrast leak. Gastrointestinal tract: Non-obstructive bowel gas pattern. Bones/joints: No evidence of acute osseous abnormality. IMPRESSION: Percutaneous gastrostomy tube is appropriately positioned within the gastric body.
[2023-10-03] MEDS: DIATRIZOATE MEG 66% & DIATRIZOATE NA 10% 30ML UDC 30 ML FEED TUBE (21:18)
--- NOTE | 2023-10-03 21:27 | ED_ITS ---
Discharge Plan Disposition Patient Disposition: Home, Self-Care Condition: Good Prescriptions Prescriptions: No Action azithromycin [Zithromax Z-Luis] 250 mg tablet See Rx Instructions .ROUTE .COMPLEX 5 Days Qty: 6 0RF Rx Instructions: For 250 mg dose pack: take 500 mg today (day 1), then 250 mg for 4 days (days 2-5) allopurinol 300 MG tablet 300 mg PO DAILY metoprolol succinate 25 MG tablet extended release 24 hr 25 mg PO DAILY levetiracetam [Keppra XR] 500 mg tablet extended release 24 hr 500 mg PO DAILY Eliquis 5 mg tablet 2.5 mg PO BID Referrals Follow up/Referrals: Hema Velazquez MD [Primary Care Provider] - See instructions Activity Restrictions/Add. Instructions Additional Instructions/Restrictions: You were evaluated in the emergency department today. Please follow-up closely with your primary care provider as well as the provider who manages your G-tube. Return for new or worsening symptoms, fever, significant abdominal pain, difficulty tolerating feeds, or other concerns. Your blood pressure was also elevated. I recommend taking it twice a day, morning and night, and providing your primary care provider with a log to see if medication adjustments need to be made. Clinical Impressions Clinical Impression: Dislodged gastrostomy tube, High blood pressure Instructions Patient Instructions: DI for Feeding Tube Exchange Discharge ED Provider: Shabana Albarado General Adult HPI General Chief complaint: Recheck/Abnormal Lab/Rx Stated complaint: feeding tube was pulled out Time Seen by Provider: 10/03/23 20:46 Mode of Arrival: Ambulatory Source of Information: Patient and Relative Limitations: Language Barrier Description of Symptoms (Recalled from ER Triage Doc. by RN): Pt family member states that pts dog got tangled up in feeding tube tubing with pt was getting feeding, causing peg tube to be pulled from pt. Pt denies pain at this time. Pt reports having a feeding tube since 2017, and has had this specefic one since October 2022. 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 She reports that her dog got tangled up in the tubing and pulled it out. She has not had this tube in place since October 2022, but overall she has had a feeding tube since 2016. No significant pain or other concerns noted at this time. She was well prior to this without any concerns Related Data Home Medications Medication Instructions Recorded Confirmed allopurinol 300 mg tablet 300 mg PO DAILY gout 09/28/17 06/17/23 metoprolol succinate 25 mg 25 mg PO DAILY blood pressure 09/28/17 06/17/23 tablet,extended release 24 hr levetiracetam 500 mg 500 mg PO DAILY seizures 02/16/23 06/17/23 tablet,extended release 24 hr (Keppra XR) apixaban 5 mg tablet (Eliquis) 2.5 mg PO BID Blood thinner 03/15/23 06/17/23 Previous Rx's Medication Instructions Recorded azithromycin 250 mg tablet See Rx Instructions PO .COMPLEX 5 06/17/23 (Zithromax Z-Lius) days #6 tabs Allergies Allergy/AdvReac Type Severity Reaction Status Date / Time Iodinated Contrast Media Allergy Intermediate Anaphylaxis Verified 03/15/23 11:54 piperacillin [From ZOSYN] Allergy Intermediate I-RASH Verified 03/15/23 11:54 tazobactam [From ZOSYN] Allergy Intermediate I-RASH Verified 03/15/23 11:54 vancomycin Allergy Intermediate Anaphylaxis Verified 03/15/23 11:54 [facility] Disclaimer: The information contained in this section may have been updated after the patient was seen, as this information can be updated by other users. Medical History Abnormal electrocardiogram [ECG] [EKG] Aortitis Bradycardia Chest pain Coronary artery disease Dizziness Dyspnea Typical angina Social History Smoking Status: Unknown if ever smoked alcohol intake: never current occupational status: disabled Travel in the last 8 weeks: None ROS Obtained: Yes All systems reviewed & no additional complaints except as documented Physical Exam General General appearance: alert and in no apparent distress Head Head exam: atraumatic and normocephalic Eye Eye exam: Present normal appearance, PERRL and EOMI ENT ENT exam: Present normal oropharynx, mucous membranes moist, normal external ear exam and other (well-healed surgical scars) Neck Neck exam: Present full ROM, trachea midline and other (well-healed surgical scars); Absent tenderness Chest Chest inspection: Present normal inspection and symmetric chest wall rise; Absent tenderness Respiratory Respiratory exam: Present normal lung sounds bilaterally; Absent respiratory distress, wheezes, stridor or accessory muscle use Cardiovascular Cardiovascular exam: Present regular rate and normal rhythm Abdominal Exam Abdominal exam: Present soft and other (G-tube site with minimal oozing of clear liquid, no significant surrounding erythema/tenderness); Absent distention, tenderness, guarding or rebound Extremities Exam Extremities exam: Present normal inspection, full ROM and normal capillary refill; Absent tenderness or edema Back Exam Back exam: Present normal inspection and full ROM; Absent tenderness Neurological Exam Neurological exam: Present alert, oriented X3, CN II-XII intact and normal gait; Absent motor sensory deficit Psychiatric Psychiatric exam: Present normal affect and normal mood Skin Skin exam: Present warm and dry Medical Decision Making Medical Records Medical records reviewed: Yes I reviewed the patient's medical records. Charly Inquiry Pt receiving controlled substance: No Vital Signs: 10/03/23 20:48 10/03/23 21:01 10/03/23 21:31 Temperature 97.0 F L Temperature Source Axillary Pulse Rate 50 L 47 L Pulse Rate [Left Radial] 52 L Respiratory Rate 20 18 Blood Pressure 201/78 H 181/74 H Blood Pressure [Right Arm] 182/85 H Blood Pressure Mean 119 109 Blood Pressure Mean [Right Arm] 117 Blood Pressure Source Blood Pressure Source [Right Arm] Automatic Cuff Blood Pressure Position Blood Pressure Position [Right Arm] Supine 02 Sat by Pulse Oximetry 100 98 98 Oxygen Delivery Method Room Air Room Air 10/03/23 22:01 10/03/23 22:12 Temperature 98.4 F Temperature Source Oral Pulse Rate 45 L 45 L Pulse Rate [Left Radial] Respiratory Rate 18 Blood Pressure 182/72 H 182/72 H Blood Pressure [Right Arm] Blood Pressure Mean 110 Blood Pressure Mean [Right Arm] Blood Pressure Source Automatic Cuff Blood Pressure Source [Right Arm] Blood Pressure Position Sitting Blood Pressure Position [Right Arm] 02 Sat by Pulse Oximetry 97 Oxygen Delivery Method Room Air Lab Data Lab results reviewed: Yes I reviewed the patient's lab results. Orders (Tests/Meds): ED MEDICATIONS Discontinued Medications Generic Name Dose Route Start Last Admin Trade Name Freq PRN Reason Stop Dose Admin Diatrizoate Meglum/Diatrizoate Sod 30 ml 10/03/23 21:13 10/03/23 21:18 Diatrizoate Betzy 66% & Diatrizoate Na 10% 30ml Udc FEED TUBE 10/03/23 21:14 30 ml ONCE ONE Administration ORDERS Category Date Time Status KUB (single view) [XR KUB] Stat Exams 10/03/23 21:05 Completed Medical Decision Narrative: In summary, this patient is a 78-year-old female presenting to the Emergency Department for evaluation of accidental removal of Velasquez G-tube. Differential diagnoses considered include but are not limited to G-tube displacement, tract disturbance. Ruling out the most morbid conditions drove assessment. On exam, the patient is well-appearing with benign abdominal exam. She has had this tube in place for almost a year and has overall had a feeding tube since 2017, so this is not a new tract. Decision was made to replace the tube at bedside after consent was obtained. Risk versus benefit were explained. We at the time did not have the right size available to us, so in the meantime we placed a 16 Djiboutian G-tube in the tract to preserve it. Patient tolerated this very well. This was held in place until we received a 20 [place]iboutian G-tube, which is the same size of the patient's prior G-tube. We do not have the Velasquez tube here, but she is okay with placement of the other tube to preserve the tract and enable her to get tube feeds at home. This was placed sterilely with sterile gloves, Betadine prep, and a 20 Djiboutian balloon G-tube. 20 mL were used to fill the balloon. Workup included post replacement x-ray with Gastrografin to confirm placement of the tube. I independently interpreted x-ray prior to the radiologist read and noted appropriate placement of the patient's G-tube. Please see radiology read for final interpretation. Dressing was applied. Patient was observed in the emergency department to ensure that she did not develop any significant pain or other concern. She overall tolerated the procedure very well without complications. Patient does not have a feed here to attempt, however she will attempt at home and will return promptly should she develop any significant pain or other concern. On multiple subsequent reassessments, the patient is resting comfortably with no significant pain. Abdominal exam is benign. Given this, patient feel comfortable with discharge. She was given instructions for close outpatient follow up, strict return precautions, and she was discharged in stable condition after all questions were answered. Procedures Risk/Benefits of Procedure(s) Were Explained: Yes Feeding Tube Replacement Type of Tube: gastrostomy Insertion Site Prior to Procedure: clean and GI fluid leaking Tube Used for Reinsertion: other (20 kiswahili G-tube) Djiboutian Tube Size (F): 20 Balloon size (mL): 20 Verification of Placement: KUB and gastrografin injection Tube Secured by: tape/dressing Patient Tolerated Procedure: well and no complications Critical Care Critical Care Time Critical Care Time: No
[2023-10-03 21:31] VITALS: BP 181/74; PULSE 47; O2SAT 98
[2023-10-03 22:01] VITALS: BP 182/72; PULSE 45; O2SAT 97
[2023-10-03 22:12] VITALS: BP 182/72; PULSE 45; RESP 18; TEMP 36.9; O2SAT 99
== END 2023-10-03 22:13 | disposition home or self-care (01) ==
PROVIDERS: Emergency Provider Emergency Medicine; PCP Internal Medicine
DX: T85.528A Displacement of other gastrointestinal prosthetic devices, implants and grafts, initial encounter (principal); I25.118 Atherosclerotic heart disease of native coronary artery with other forms of angina pectoris; I79.1 Aortitis in diseases classified elsewhere; Z85.818 Personal history of malignant neoplasm of other sites of lip, oral cavity, and pharynx
CPT/HCPCS: 43762; 74018; 99283

== ENCOUNTER 2023-11-01 17:24 | Emergency (ER) | payer MEDICARE, SELFPAY ==
[2023-11-01 17:25] VITALS: BP 180/76; PULSE 50; RESP 15; TEMP 36.7; O2SAT 99; BMI 21.0
--- NOTE | 2023-11-01 17:30 | PC.NURSE ---
DR DOTY AT BEDSIDE
[2023-11-01 17:31] VITALS: BP 192/76; PULSE 48; O2SAT 99
--- NOTE | 2023-11-01 17:31 | CT_ITS ---
PROCEDURE INFORMATION: Exam: CT Cervical Spine Without Contrast Exam date and time: 11/01/2023 6:09 PM Age: 78 years old Clinical indication: Injury or trauma; Fall; Blunt trauma; Additional info: Fall, on eliquis, R parietal head lac TECHNIQUE: Imaging protocol: Computed tomography of the cervical spine without contrast. Radiation optimization: All CT scans at this facility use at least one of these dose optimization techniques: automated exposure control; mA and/or kV adjustment per patient size (includes targeted exams where dose is matched to clinical indication); or iterative reconstruction. COMPARISON: CT CERVICAL SPINE WO CON 07/22/2022 2:49 PM FINDINGS: Bones/joints: Fixation hardware in the mandibular ramus noted. Grade 1 anterolisthesis of C3 without associated fracture and presumably degenerative related. There is preservation of vertebral body heights. Facet joints are aligned. Odontoid process is intact. Atlantoaxial interval maintained. No acute fracture. Uncovertebral and facet arthropathy result in varying degrees of neural foraminal narrowing at multiple levels. Lungs: Lung apices are normal. Soft tissues: Postoperative changes throughout the face and upper neck are re-identified. There is a small defect along the lower neck likely from prior tracheostomy tube placement. Prevertebral and paravertebral soft tissues are maintained IMPRESSION: 1. No acute fracture. No traumatic subluxation. 2. Grade 1 anterolisthesis of C3 without associated fracture and presumably degenerative related.
--- NOTE | 2023-11-01 17:31 | XR_ITS ---
PROCEDURE INFORMATION: Exam: XR Left Elbow Exam date and time: 11/01/2023 6:11 PM Age: 78 years old Clinical indication: Injury or trauma; Fall; Blunt trauma (contusions or hematomas); Elbow; Left; Additional info: Fall, L posterior pain. TECHNIQUE: Imaging protocol: Radiologic exam of the left elbow. Views: 3 or more views. COMPARISON: CR XR FOREARM LT 2V 11/01/2023 6:11 PM FINDINGS: Bones/joints: No visible fracture or dislocation. No joint effusion. Curvilinear density emanating from the lateral humeral epicondyle likely an enthesophyte. Soft tissues: Normal. IMPRESSION: No visible fracture or dislocation.
--- NOTE | 2023-11-01 17:31 | XR_ITS ---
PROCEDURE INFORMATION: Exam: XR Left Forearm Exam date and time: 11/01/2023 6:11 PM Age: 78 years old Clinical indication: Injury or trauma; Fall; Blunt trauma (contusions or hematomas); Arm, lower; Left; Additional info: Fall, L midshaft ulna pain TECHNIQUE: Imaging protocol: Radiologic exam of the left forearm. Views: 2 views. COMPARISON: CR XR HAND LT MIN 3V 07/22/2022 3:12 PM FINDINGS: Bones/joints: No visible fracture or dislocation. Soft tissues: Normal. IMPRESSION: No visible fracture or dislocation.
--- NOTE | 2023-11-01 17:31 | CT_ITS ---
PROCEDURE INFORMATION: Exam: CT Head Without Contrast Exam date and time: 11/01/2023 6:07 PM Age: 78 years old Clinical indication: Injury or trauma; Additional info: Fall, on eliquis, R parietal head lac TECHNIQUE: Imaging protocol: Computed tomography of the head without contrast. Radiation optimization: All CT scans at this facility use at least one of these dose optimization techniques: automated exposure control; mA and/or kV adjustment per patient size (includes targeted exams where dose is matched to clinical indication); or iterative reconstruction. COMPARISON: CT HEAD/BRAIN WO CON 07/22/2022 2:41 PM FINDINGS: Brain: There is moderate diffuse cerebral volume loss present. Multiple subcortical and deep hypoattenuating white matter foci are present, likely related to small vessel senescent changes and can also be seen with prior infectious / inflammatory insult, or prior traumatic events. No hyperattenuating foci are identified to suggest acute intracranial hemorrhage. Cerebral ventricles: No ventriculomegaly. Paranasal sinuses: Visualized sinuses are unremarkable. No fluid levels. Mastoid air cells: Visualized mastoid air cells are well aerated. Bones/joints: Plate and screw fixation of the mandible seen at lower end of examination. Soft tissues: Right posterior parietal skin defect with opacities compatible with laceration with hematomas. IMPRESSION: 1. Multiple subcortical and deep hypoattenuating white matter foci are present, likely related to small vessel senescent changes and can also be seen with prior infectious / inflammatory insult, or prior traumatic events. 2. No hyperattenuating foci are identified to suggest acute intracranial hemorrhage. 3. Right posterior parietal skin defect with opacities compatible with laceration with hematomas.
[2023-11-01 17:37] VITALS: BMI 21.0
[2023-11-01] MEDS: KETOROLAC 30MG/ML VIAL 15 MG IV (17:47)
[2023-11-01] MEDS: ACETAMINOPHEN 1,000MG/100ML VIAL 1000 MG IV (17:48)
[2023-11-01] MEDS: LIDOCAINE 1% 20ML MDV 20 ML SQ (17:48)
--- NOTE | 2023-11-01 17:58 | ED_ITS ---
Discharge Plan Disposition Patient Disposition: Home, Self-Care Chief Complaint: Fall Prescriptions Prescriptions: No Action azithromycin [Zithromax Z-Luis] 250 mg tablet See Rx Instructions .ROUTE .COMPLEX 5 Days Qty: 6 0RF Rx Instructions: For 250 mg dose pack: take 500 mg today (day 1), then 250 mg for 4 days (days 2-5) allopurinol 300 MG tablet 300 mg PO DAILY metoprolol succinate 25 MG tablet extended release 24 hr 25 mg PO DAILY levetiracetam [Keppra XR] 500 mg tablet extended release 24 hr 500 mg PO DAILY Eliquis 5 mg tablet 2.5 mg PO BID Referrals Follow up/Referrals: Hema Velazquez MD [Primary Care Provider] - See instructions Activity Restrictions/Add. Instructions Additional Instructions/Restrictions: Return to the emergency department triage area in 10 to 14 days to have femi removed. Call your family doctor to establish care for this visit to the emergency department and schedule follow-up within 48 hours to ensure improvement. If you have any worsening of your condition or any other concerning signs or symptoms, return to the emergency department or your primary care doctor for further evaluation. Clinical Impressions Clinical Impression: Laceration of head, Fall Discharge ED Provider: James Geller General Adult HPI General Chief complaint: Fall Stated complaint: [id number]/@[id number] head lac Time Seen by Provider: 11/01/23 17:27 Mode of Arrival: Ambulatory Source of Information: Patient Limitations: No Limitations Description of Symptoms (Recalled from ER Triage Doc. by RN): 78 yo F presents to ED for fall and laceration. pts daughter at bedside. pts daughter reports pt was crunching down boxes and slipped and has a laceration on left side of head. pt reports + blood thinner, but no LOC. History of Present Illness HPI narrative: 78-year-old female history of hypertension, hyperlipidemia, DVT and PE currently on Eliquis, head neck cancer status post chemo and radiation with place presenting with fall. Patient was stomping on boxes and slipped, fell, hit the top of her head on the door frame. No loss of consciousness. Came immediately to the emergency department. Has been taking her medications as prescribed. She is having moderate pain in her head where the laceration is, but feeling all right otherwise. Please note that above description of symptoms, in this electronic medical record under categorization of recalled from ER triage doctor by RN are reflective of an initial nursing assessment, however, is not reflective of my fu ll history and physical exam that was personally taken and clarified. Consequentially, this preceding description of symptoms, which may include the patient's categorized chief complaint in the EMR, do not reflect my personal clinical impression, and the ultimate description of history of present illness and patient stated complaints should be deferred to this section of the note. Unless stated otherwise or congruent with this section of the note, additional signs, symptoms, or incongruence should be interpreted as inaccurate with my clinical impression. Related Data Home Medications Medication Instructions Recorded Confirmed allopurinol 300 mg tablet 300 mg PO DAILY gout 09/28/17 06/17/23 metoprolol succinate 25 mg 25 mg PO DAILY blood pressure 09/28/17 06/17/23 tablet,extended release 24 hr levetiracetam 500 mg 500 mg PO DAILY seizures 02/16/23 06/17/23 tablet,extended release 24 hr (Keppra XR) apixaban 5 mg tablet (Eliquis) 2.5 mg PO BID Blood thinner 03/15/23 06/17/23 Previous Rx's Medication Instructions Recorded azithromycin 250 mg tablet See Rx Instructions PO .COMPLEX 5 06/17/23 (Zithromax Z-Luis) days #6 tabs Allergies Allergy/AdvReac Type Severity Reaction Status Date / Time Iodinated Contrast Media Allergy Intermediate Anaphylaxis Verified 03/15/23 11:54 piperacillin [From ZOSYN] Allergy Intermediate I-RASH Verified 03/15/23 11:54 tazobactam [From ZOSYN] Allergy Intermediate I-RASH Verified 03/15/23 11:54 vancomycin Allergy Intermediate Anaphylaxis Verified 03/15/23 11:54 [facility] Disclaimer: The information contained in this section may have been updated after the patient was seen, as this information can be updated by other users. Medical History Abnormal electrocardiogram [ECG] [EKG] Aortitis Bradycardia Chest pain Coronary artery disease Dizziness Dyspnea Typical angina Social History Smoking Status: Former smoker alcohol intake: never current occupational status: disabled Travel in the last 8 weeks: None ROS Obtained: Yes All systems reviewed & no additional complaints except as documented Physical Exam General General appearance: alert and in no apparent distress Head Head exam: normocephalic and other (8 cm laceration on right parietal scalp. Hemostatic. No evidence of depressed or basilar skull fracture) Eye Eye exam: Present normal appearance, PERRL and EOMI ENT ENT exam: Present mucous membranes moist Neck Neck exam: Present normal inspection, full ROM and trachea midline; Absent tenderness Respiratory Respiratory exam: Absent respiratory distress, wheezes, stridor, accessory muscle use or prolonged expiratory phase Cardiovascular Cardiovascular exam: Present normal rhythm Abdominal Exam Abdominal exam: Present soft; Absent distention, tenderness, guarding, rebound or rigidity Extremities Exam Extremities exam: Absent edema Neurological Exam Neurological exam: Present alert, oriented X3, CN II-XII intact and normal gait; Absent motor sensory deficit Skin Skin exam: Present warm and dry; Absent diaphoresis or erythema Medical Decision Making Medical Records Medical records reviewed: Yes I reviewed the patient's medical records. Charly Inquiry Pt receiving controlled substance: No Charly was queried for this patient: No Vital Signs: 11/01/23 17:25 11/01/23 17:31 11/01/23 18:01 Temperature 98.0 F Temperature Source Temporal Artery Scan Pulse Rate 48 L 44 L Pulse Rate [Left Radial] 50 L Respiratory Rate 15 Blood Pressure 192/76 H 153/73 H Blood Pressure [Right Arm] 180/76 H Blood Pressure Mean [Right Arm] 110 02 Sat by Pulse Oximetry 99 99 95 Oxygen Delivery Method Room Air Room Air Room Air 11/01/23 18:31 Temperature Temperature Source Pulse Rate 48 L Pulse Rate [Left Radial] Respiratory Rate Blood Pressure 188/77 H Blood Pressure [Right Arm] Blood Pressure Mean [Right Arm] 02 Sat by Pulse Oximetry 98 Oxygen Delivery Method Room Air Orders (Tests/Meds): ED MEDICATIONS Discontinued Medications Generic Name Dose Route Start Last Admin Trade Name Freq PRN Reason Stop Dose Admin Acetaminophen 1,000 mg 11/01/23 17:31 11/01/23 17:39 Acetaminophen 500mg Tab PO 11/01/23 17:32 Not Given ONCE ONE Acetaminophen 1,000 mg 11/01/23 17:40 11/01/23 17:48 Acetaminophen 1,000mg/100ml Vial IV 11/01/23 17:41 1,000 mg ONCE ONE Administration Ibuprofen 400 mg 11/01/23 17:31 11/01/23 17:39 Ibuprofen 400 Mg Tablet PO 11/01/23 17:32 Not Given ONCE ONE Ketorolac Tromethamine 15 mg 11/01/23 17:37 11/01/23 17:47 Ketorolac 30mg/Ml Vial IV 11/01/23 17:38 15 mg ONCE ONE Administration Lidocaine HCl 20 ml 11/01/23 17:31 11/01/23 17:48 Lidocaine 1% 20ml Mdv SQ 11/01/23 17:32 20 ml ONCE ONE Administration ORDERS Category Date Time Status CT cervical spine wo con Stat Cat Scan 11/01/23 17:[address] head/brain wo con Stat Cat Scan 11/01/23 17:31 Taken Elbow XR left mininum 3 views [XR elbow LT min 3V] Stat Exams 11/01/23 17:31 Completed Forearm XR left 2 views [XR forearm LT 2V] Stat Exams 11/01/23 17:31 Completed Medical Decision Narrative: 78-year-old female history of hypertension, hyperlipidemia, DVT and PE currently on Eliquis, head neck cancer status post chemo and radiation with place presenting with fall. Patient was stomping on boxes and slipped, fell, hit the top of her head on the door frame. No loss of consciousness. Came immediately to the emergency department. Has been taking her medications as prescribed. She is having moderate pain in her head where the laceration is, but feeling all right otherwise. History was obtained via conversation with patient and family. On arrival, patient hemodynamically stable, alert, oriented x4, appropriate, GCS 15, moving all extremities spontaneously, pupils equal and reactive to light. Full physical exam performed and significant for 10 cm laceration right parietal scalp, largely hemostatic. No palpable depressed skull fracture. No signs of basilar skull fracture. No neck tenderness. She does have tenderness along the midshaft of her left forearm. Patient alert and oriented neurologically intact. Differential includes skull fracture, intracranial bleed, concussion, among others. Patient was given infiltrated lidocaine, IV Tylenol and Motrin for symptomatic management and correction of underlying abnormalities. Workup independently interpreted and significant for no acute intracranial hemorrhage. No evidence of acute cervical spine injury. No left upper extremity fracture. See radiology read for full review of final results. On reevaluation, patient resting comfortably after 12 femi placed in scalp. Given patient presentation, workup, history, this most likely represents uncomplicated scalp lack in the setting of fall on anticoagulation. Because patient at baseline without signs or symptoms of clinical decompensation, deemed appropriate for discharge. Results were relayed to patient who voiced understanding and were agreeable to outpatient management and follow up. I d iscussed my clinical impression with patient and answered all questions. At this time, the evidence for any other entities in the differential is insufficient to warrant any further testing or ED observation. This was explained as well. Advisory was given that persistent or worsening symptoms require further evaluation. I confirmed the understanding of this discussion. Procedures Laceration Laceration 1: Site: scalp Side (If applicable): right Size (cm): 10 Description: linear Depth: simple, single layer Amount of anesthesia used (mL): 10 Pre-repair: wound explored Skin layer closed with: other (femi) Number of sutures: 12 Critical Care Critical Care Time Critical Care Time: No
[2023-11-01 18:01] VITALS: BP 153/73; PULSE 44; O2SAT 95
[2023-11-01 18:31] VITALS: BP 188/77; PULSE 48; O2SAT 98
--- NOTE | 2023-11-01 19:18 | PC.NURSE ---
rounded on patient, pt. sleeping, call light within reach
[2023-11-01 20:05] VITALS: BP 164/75; PULSE 50; RESP 16; TEMP 36.7; O2SAT 99
== END 2023-11-01 20:11 | disposition home or self-care (01) ==
PROVIDERS: Emergency Provider Emergency Medicine; PCP Internal Medicine
DX: S01.01XA Laceration without foreign body of scalp, initial encounter (principal); I11.9 Hypertensive heart disease without heart failure; E78.5 Hyperlipidemia, unspecified; I25.119 Atherosclerotic heart disease of native coronary artery with unspecified angina pectoris; Z79.01 Long term (current) use of anticoagulants; W19.XXXA Unspecified fall, initial encounter
CPT/HCPCS: 12004; 70450; 72125; 73080; 73090; 96374; 96375; 99285; J0131

== ENCOUNTER 2023-11-13 12:50 | Emergency (ER) | payer MEDICARE, SELFPAY ==
[2023-11-13 13:39] VITALS: BP 126/72; PULSE 49; RESP 18; TEMP 37.2; O2SAT 98; BMI 21.9
[2023-11-13 13:40] VITALS: BP 126/72; PULSE 49; RESP 18; TEMP 37.2; O2SAT 98
--- NOTE | 2023-11-13 13:41 | PC.NURSE ---
removed 12 femi from the top of head
== END 2023-11-13 13:40 | disposition home or self-care (01) ==
LOC: UTC 12:53
PROVIDERS: Emergency Provider Nurse Practitioner; PCP Internal Medicine
DX: Z48.02 Encounter for removal of sutures (principal)

== ENCOUNTER 2023-12-25 17:20 | Outpatient (CLI) | payer MEDICARE, SELFPAY ==
[2023-12-25 18:25] LABS: Basophils % 0.7 % (0.1-2.0); Eosinophils # 0.2 K/mm3 (0.0-0.4); Eosinophils % 3.4 % (0.1-12.0); Hematocrit 35.3 % (37.0-47.0); Hemoglobin 11.8 g/dL (12.2-16.2); Lymphocytes % 22.2 % (10-50); Mean Corpuscular HGB Conc 33.3 g/dL (31.8-35.4); Mean Corpuscular Hemoglobin 32.7 pg (27.0-31.2); Mean Platelet Volume 9.8 fl (7.4-10.4); Monocytes # 0.3 K/mm3 (0.1-1.0); Monocytes % 5.7 % (1.7-9.3); Neutrophils # 3.1 K/mm3 (1.8-7.8); Platelet Count 167 K/mm3 (142-424); Red Cell Distribution Width 14.4 % (11.5-17.5); White Blood Count 4.5 K/mm3 (4.8-10.8)
[2023-12-25 21:12] LABS: Alanine Aminotransferase 12 U/L (12-78); Albumin Level 4.1 g/dl (3.5-5.0); Albumin/Globulin Ratio 1.8 (1.1-1.8); Alkaline Phosphatase 82 U/L (38-126); Anion Gap 15.4 mEq/L (5-15); Aspartate Amino Transferase 28 U/L (14-36); Bilirubin,Total 0.4 mg/dl (0.2-1.3); Blood Urea Nitrogen 46 mg/dl (7-17); Calcium 9.7 mg/dl (8.4-10.2); Carbon Dioxide 29 mmol/L (22.0-30.0); Chloride 98 mmol/L (98-107); Estimated Glomerular Filt Rate 48 ml/min (>60); GFR (African American) 58 ML/MIN (>60); Globulin 2.3 g/dL (1.3-3.2); Glucose 95 mg/dl (74-100); Potassium 4.4 mmoL/L (3.5-5.1); Sodium 138 mmol/L (136-145); Total Protein,Serum 6.4 g/dl (6.3-8.2)
[2023-12-25 21:39] LABS: Thyroid Stimulating Hormone 4.22 uIU/mL (0.465-4.68)
== END 2023-12-25 23:59 | disposition home or self-care (01) ==
LOC: LAB.DROPOF 17:22
PROVIDERS: PCP Internal Medicine; Visit Provider Internal Medicine
DX: R53.83 Other fatigue; E11.59 Type 2 diabetes mellitus with other circulatory complications
CPT/HCPCS: 80053; 84443; 85025

== ENCOUNTER 2024-08-06 14:02 | Outpatient (CLI) | payer MEDICARE, SELFPAY ==
[2024-08-06 12:58] LABS: Basophils % 0.3 % (0.1-2.0); Eosinophils % 0.3 % (0.1-12.0); Hematocrit 33.2 % (37.0-47.0); Hemoglobin 11.4 g/dL (12.2-16.2); Lymphocytes % 11.9 % (10-50); Mean Corpuscular HGB Conc 34.3 g/dL (31.8-35.4); Mean Corpuscular Hemoglobin 32.3 pg (27.0-31.2); Mean Corpuscular Volume 94.1 fl (81-99); Mean Platelet Volume 11.5 fl (7.4-10.4); Monocytes # 0.6 K/mm3 (0.1-1.0); Monocytes % 6.9 % (1.7-9.3); Neutrophils # 6.4 K/mm3 (1.8-7.8); Neutrophils % 80.3 % (37.0-80.0); Platelet Count 138 K/mm3 (142-424); Red Blood Count 3.53 M/mm3 (4.20-5.40); Red Cell Distribution Width 12.9 % (11.5-17.5)
[2024-08-06 13:06] LABS: Alanine Aminotransferase 14 U/L (12-78); Albumin Level 3.9 g/dl (3.5-5.0); Alkaline Phosphatase 71 U/L (38-126); Anion Gap 11.5 mEq/L (5-15); Aspartate Amino Transferase 27 U/L (14-36); Bilirubin,Total 0.6 mg/dl (0.2-1.3); Blood Urea Nitrogen 47 mg/dl (7-17); Calcium 9.2 mg/dl (8.4-10.2); Carbon Dioxide 29 mmol/L (22.0-30.0); Chloride 100 mmol/L (98-107); Chol/HDL Ratio 4.1 (1-3.5); Cholesterol 127 mg/dl (140-200); Estimated Glomerular Filt Rate 43 ml/min (>60); GFR (African American) 53 ML/MIN (>60); Glucose 98 mg/dl (74-100); HDL Cholesterol 31 mg/dl (40-60); Potassium 4.5 mmoL/L (3.5-5.1); Sodium 136 mmol/L (136-145); Total Protein,Serum 5.9 g/dl (6.3-8.2); Triglycerides 143 mg/dl (30-150); Uric Acid 3.4 mg/dl (2.5-6.2); VLDL Cholesterol 29 mg/dL (0-40)
[2024-08-06 13:16] LABS: Direct LDL Cholesterol 65.63 mg/dL (100-129)
[2024-08-06 13:19] LABS: Troponin I < 0.01 ng/ml (0.00-0.034)
== END 2024-08-06 23:59 | disposition home or self-care (01) ==
LOC: LAB.DROPOF 14:03
PROVIDERS: PCP Internal Medicine; Visit Provider Internal Medicine
DX: E78.5 Hyperlipidemia, unspecified (principal); E11.59 Type 2 diabetes mellitus with other circulatory complications; I10 Essential (primary) hypertension; M10.9 Gout, unspecified; R07.9 Chest pain, unspecified; Z87.891 Personal history of nicotine dependence
CPT/HCPCS: 80053; 80061; 83036; 84484; 84550; 85025

== ENCOUNTER 2024-11-16 14:41 | Emergency (ER) | payer MEDICARE, SELFPAY ==
[2024-11-16] VITALS (11 sets, daily range): BP systolic 125–157; BP diastolic 60–71; PULSE 56–90; RESP 13–18; TEMP 36.4–36.7; O2SAT 93–98; BMI 21.0
--- NOTE | 2024-11-16 14:48 | ECG_ITS ---
APPROVED REPORT Exam: Resting ECG HR:59 bpm ECG Measurements Heart Rate 59 AXES [place] 195 P 32 QRSd 81 QRS 17 QT 393 T 60 QTc 391 Conclusion SINUS BRADYCARDIA BORDERLINE ECG Electronically signed by : PAT GALARZA, 11/16/2024 23:28:16
--- NOTE | 2024-11-16 14:57 | CT_ITS ---
PROCEDURE INFORMATION: Exam: CTA Chest With Contrast Exam date and time: 11/16/2024 4:38 PM Age: 79 years old Clinical indication: Other: Fall >65, possible syncope, history blood clots TECHNIQUE: Imaging protocol: Computed tomographic angiography of the chest with contrast. Exam focused on the arteries. 3D rendering (Not supervised by radiologist): MIP and/or 3D reconstructed images were created by the technologist. Radiation optimization: All CT scans at this facility use at least one of these dose optimization techniques: automated exposure control; mA and/or kV adjustment per patient size (includes targeted exams where dose is matched to clinical indication); or iterative reconstruction. Contrast material: ISO 370; Contrast volume: 60 ml; Contrast route: INTRAVENOUS (IV); COMPARISON: CR CXR2V XR chest 2V 09/08/2018 8:08 PM FINDINGS: Tubes, catheters and devices: Percutaneous gastrostomy tube in place. Pulmonary arteries: Normal. No pulmonary emboli. Aorta: Unremarkable. No aortic aneurysm. No aortic dissection. Thyroid: Thyroid gland is moderately enlarged. There is a 10 mm simple appearing cyst in the right lobe of the thyroid gland. Coarse calcification noted inferior pole of the right lobe of the thyroid. Lungs: Moderate amount of endobronchial secretions noted in the left lower lobe. Airways otherwise appear clear. Pleural spaces: Unremarkable. No pneumothorax. No pleural effusion. Heart: Unremarkable. No cardiomegaly. No pericardial effusion. Lymph nodes: Unremarkable. No enlarged lymph nodes. Bones/joints: Moderate degenerative disc space narrowing with uncovertebral spurring and anterior osteophyte formation throughout the mid to lower thoracic spine. No vertebral body compression. No acute fracture. Soft tissues: Evidence of prior left mastectomy. Soft tissues are otherwise unremarkable IMPRESSION: 1. No acute posttraumatic changes 2. Moderate endobronchial secretions or aspirated material in the left lower lobe. No significant infiltrate 3. Moderate thyromegaly with right lobe thyroid cyst and calcification. Correlation with thyroid ultrasound recommended when clinically feasible COMMENTS: Consistent with the [employer]'s Incidental Findings Committee white paper (J Am Zuleyka Radiol 2015): In patients aged 35 years and older with an incidental thyroid nodule equal to or greater than 1.[address], MRI or extrathyroidal US, further evaluation with dedicated thyroid US is recommended for patients with normal life expectancy and without comorbidities. For smaller nodules without suspicious features, no further evaluation or follow up is recommended.
--- NOTE | 2024-11-16 14:57 | CT_ITS ---
PROCEDURE INFORMATION: Exam: CTA Head With Contrast, Arteriography Exam date and time: 11/16/2024 4:34 PM Age: 79 years old Clinical indication: Other: Fall >65, possible syncope, history blood clots TECHNIQUE: Imaging protocol: Computed tomographic angiography of the head with contrast. Exam focused on the arteries. 3D rendering (Not supervised by radiologist): MIP and/or 3D reconstructed images were created by the technologist. Radiation optimization: All CT scans at this facility use at least one of these dose optimization techniques: automated exposure control; mA and/or kV adjustment per patient size (includes targeted exams where dose is matched to clinical indication); or iterative reconstruction. Contrast material: ISO 370; Contrast volume: 80 ml; Contrast route: INTRAVENOUS (IV); COMPARISON: CT HEAD/BRAIN WO CON 11/16/2024 4:31 PM FINDINGS: ANTERIOR CIRCULATION: Right internal carotid artery: Intracranial segment is patent with no significant stenosis. No aneurysm. Right middle cerebral artery: No occlusion or significant stenosis. No aneurysm. Right anterior cerebral artery: No occlusion or significant stenosis. No aneurysm. Left internal carotid artery: Intracranial segment is patent with no significant stenosis. No aneurysm. Left middle cerebral artery: No occlusion or significant stenosis. No aneurysm. Left anterior cerebral artery: No occlusion or significant stenosis. No aneurysm. POSTERIOR CIRCULATION: Right vertebral artery: No occlusion or significant stenosis. No aneurysm. Left vertebral artery: No occlusion or significant stenosis. No aneurysm. Basilar artery: No occlusion or significant stenosis. No aneurysm. Right posterior cerebral artery: No occlusion or significant stenosis. No aneurysm. Left posterior cerebral artery: No occlusion or significant stenosis. No aneurysm. Brain: No definite mass, mass effect, or midline shift. Cerebral ventricles: No ventriculomegaly. Bones/joints: Unremarkable. No acute fracture. Soft tissues: Unremarkable. IMPRESSION: No acute intracranial large vessel stenosis or occlusion.
--- NOTE | 2024-11-16 14:57 | CT_ITS ---
PROCEDURE INFORMATION: Exam: CT Head Without Contrast Exam date and time: 11/16/2024 4:31 PM Age: 79 years old Clinical indication: Other: Fall >65, possible syncope, history blood clots TECHNIQUE: Imaging protocol: Computed tomography of the head without contrast. Radiation optimization: All CT scans at this facility use at least one of these dose optimization techniques: automated exposure control; mA and/or kV adjustment per patient size (includes targeted exams where dose is matched to clinical indication); or iterative reconstruction. COMPARISON: CT HEAD/BRAIN WO CON 11/01/2023 6:07 PM FINDINGS: Brain: Normal. No hemorrhage. Unremarkable white matter. No mass effect. Cerebral ventricles: No ventriculomegaly. Paranasal sinuses: Visualized sinuses are unremarkable. No fluid levels. Mastoid air cells: Visualized mastoid air cells are well aerated. Bones: Unremarkable. No acute fracture. Soft tissues: Unremarkable. IMPRESSION: No acute intracranial abnormality.
--- NOTE | 2024-11-16 14:57 | CT_ITS ---
PROCEDURE INFORMATION: Exam: CTA Neck With Contrast Exam date and time: 11/16/2024 4:34 PM Age: 79 years old Clinical indication: Other: Fall >65, possible syncope, history blood clots TECHNIQUE: Imaging protocol: Computed tomographic angiography of the neck with contrast. Exam focused on the cervical segments of the vasculature. 3D rendering (Not supervised by radiologist): MIP and/or 3D reconstructed images were created by the technologist. Radiation optimization: All CT scans at this facility use at least one of these dose optimization techniques: automated exposure control; mA and/or kV adjustment per patient size (includes targeted exams where dose is matched to clinical indication); or iterative reconstruction. Contrast material: ISO 370; Contrast volume: 80 ml; Contrast route: INTRAVENOUS (IV); COMPARISON: CT SOFT TISSUE NECK WO CON 07/22/2022 2:53 PM FINDINGS: Right common carotid artery: No stenosis. No dissection or occlusion. Right internal carotid artery: Mild stenosis of the extracranial segment. Less than 50% by NASCET criteria. No dissection or occlusion. Right external carotid artery: No occlusion or stenosis of the origin. Left common carotid artery: No stenosis. No dissection or occlusion. Left internal carotid artery: Mild stenosis of the extracranial segment. Less than 50% by NASCET criteria. No dissection or occlusion. Left external carotid artery: No occlusion or stenosis of the origin. Right vertebral artery: No stenosis. No dissection or occlusion. Left vertebral artery: No stenosis. No dissection or occlusion. Pulmonary arteries: Saddle pulmonary embolus left pulmonary artery. Soft tissues: Normal. No significant soft tissue swelling. Bones/joints: No acute fracture. IMPRESSION: 1. No hemodynamically significant extracranial cerebrovascular stenosis detected. 2. Saddle pulmonary embolus left pulmonary artery. REFERENCES: NASCET CRITERIA. The degree of stenosis in the cervical segment of the internal carotid artery is based on NASCET criteria. Normal is no stenosis. Mild is less than 50% stenosis. Moderate is 50-69% stenosis. Severe is 70% to 99% stenosis. Total occlusion is no detectable patent lumen.
--- NOTE | 2024-11-16 14:57 | CT_ITS ---
PROCEDURE INFORMATION: Exam: CT Cervical Spine Without Contrast Exam date and time: 11/16/2024 4:33 PM Age: 79 years old Clinical indication: Injury or trauma; Fall; Blunt trauma; Additional info: Fall >65, possible syncope, history blood clots TECHNIQUE: Imaging protocol: Computed tomography of the cervical spine without contrast. Radiation optimization: All CT scans at this facility use at least one of these dose optimization techniques: automated exposure control; mA and/or kV adjustment per patient size (includes targeted exams where dose is matched to clinical indication); or iterative reconstruction. COMPARISON: CT CERVICAL SPINE WO CON 11/01/2023 6:09 PM FINDINGS: Bones/joints: No acute fracture. Normal alignment. C2-C3: No significant disc bulge or herniation. No severe spinal canal stenosis. No significant neural foraminal narrowing. C3-C4: No significant disc bulge or herniation. No severe spinal canal stenosis. No significant neural foraminal narrowing. C4-C5: Mild disc space narrowing. No significant disc bulge or herniation. No severe spinal canal stenosis. No significant neural foraminal narrowing. C5-C6: Severe disc space narrowing. No significant disc bulge or herniation. No severe spinal canal stenosis. No significant neural foraminal narrowing. C6-C7: Severe disc space narrowing. No significant disc bulge or herniation. No severe spinal canal stenosis. No significant neural foraminal narrowing. C7-T1: No significant disc bulge or herniation. No severe spinal canal stenosis. No significant neural foraminal narrowing. Lungs: Lung apices are normal. Soft tissues: Unremarkable. IMPRESSION: No acute traumatic findings.
--- NOTE | 2024-11-16 15:02 | ED_ITS ---
<Statement entered by Shabana Albarado DO - 11/16/24 15:24> I was consulted by the ESTEBAN, and we discussed the complexity of the problems being addressed. I approved the treatment and management plan for this patient's care in the emergency department, thus performing a substantive portion of the medical decision making. I was initially involved in the patient care upon arrival. Patient is completely amnestic to the events that led to her falling, she is not sure if she passed out or what exactly happened. She has significant bilateral neck pain at this time. She denies any headache, visual disturbance, numbness, tingling, unilateral weakness, chest pain, or shortness of breath, however it is very concerning that she had a possible syncopal episode with now bilateral neck pain. I recommended obtaining CT angiogram of the chest as well as CT angiogram head and neck, but patient advised that she is allergic to IV contrast. She states that she always gets pretreatment at with Benadryl and steroids, and she does fine with that receiving IV contrast. She is agreeable to try IV Benadryl and steroids and then proceed with contrasted scans here in the emergency department after expansion of risk versus benefit. Patient care signed of the oncoming provider, Dr. Samuel, at my departure at 1500. Shabana Albarado DO Discharge Plan Disposition Patient Disposition: Home, Self-Care Condition: Good Prescriptions Prescriptions: No Action chlorhexidine gluconate 0.12 % mouthwash 15 ml mucous membrane BID PRN allopurinol 300 mg tablet 300 mg PO DAILY Qty: 90 1RF levetiracetam [Keppra] 500 mg tablet 500 mg PO DAILY Qty: 90 1RF metoprolol succinate 25 mg tablet extended release 24 hr See Rx Instructions .ROUTE .COMPLEX Qty: 180 1RF Dose Instruction: TAKE 1 TABLET BY MOUTH TWICE DAILY FOR BLOOD PRESSURE AND HEART Rx Instructions: TAKE 1 TABLET BY MOUTH TWICE DAILY FOR BLOOD PRESSURE AND HEART Eliquis 2.5 mg tablet 2.5 mg PO BID Qty: 180 1RF Referrals Follow up/Referrals: Hema Velazquez MD [Primary Care Provider] - See instructions Activity Restrictions/Add. Instructions Additional Instructions/Restrictions: Follow-up with primary care Take Eliquis as ordered Symptoms worsen or do not improve return Clinical Impressions Clinical Impression: Acute neck pain Instructions Patient Instructions: DI for Neck Pain Print Language Print Language: Estonian Discharge ED Provider: Maldonado Samuel General Adult H[facility] - Last Filed: 11/16/24 18:49> General Chief complaint: Weakness Stated complaint: AO 11/15/24 Passed out, Fever Time Seen by Provider: 11/16/24 14:50 Mode of Arrival: Ambulatory Source of Information: Patient Limitations: No Limitations History of Present Illness HPI narrative: 79-year-old female presents for complaints of neck pain status post fall. Patient states yesterday morning she had a fall. Patient states she is unsure what caused the fall. No loss of consciousness. Patient states she is unsure if she passed out or if she tripped over something. Related Data Home Medications ?Medication ?Instructions ?Recorded ?Confirmed chlorhexidine gluconate 0.12 % 15 ml mucous membrane BID PRN 02/27/24 08/06/24 mouthwash Previous Rx's ?Medication ?Instructions ?Recorded allopurinol 300 mg tablet 300 mg PO DAILY gout #90 tabs 04/11/24 levetiracetam 500 mg tablet 500 mg PO DAILY #90 tabs 08/09/24 (Keppra) metoprolol succinate 25 mg See Rx Instructions .Route 09/02/24 tablet,extended release 24 hr .COMPLEX #180 tabs apixaban 2.5 mg tablet (Eliquis) 2.5 mg PO BID #180 tabs 10/02/24 Allergies Allergy/AdvReac Type Severity Reaction Status Date / Time Iodinated Contrast Media Allergy Intermediate Anaphylaxis Verified 08/06/24 11:17 piperacillin (From ZOSYN) Allergy Intermediate I-RASH Verified 08/06/24 11:17 tazobactam (From ZOSYN) Allergy Intermediate I-RASH Verified 08/06/24 11:17 vancomycin Allergy Intermediate Anaphylaxis Verified 08/06/24 11:17 PFSH <Gilson Mendoza ([facility]), [facility] - Last Filed: 11/16/24 18:49> PFS Disclaimer: The information contained in this section may have been updated after the patient was seen, as this information can be updated by other users. Medical History , [facility]) Coronary artery disease Typical angina Abnormal electrocardiogram [ECG] [EKG] Aortitis Bradycardia Dizziness Dyspnea Chest pain Social History , [facility]) Smoking Status: Never smoker alcohol intake: never current occupational status: disabled Travel in the last 8 weeks: None Have you lived/traveled outside [place] in past 30 days?: No Contact w/someone who lives/traveled outside US past 30 days?: No Exposure to someone with infectious disease in past 14 days?: No Do you have a fever (greater than 100.4 F or 38 C)?: No Have you tested positive for COVID-19: No Exposed to someone with COVID-19 in past 14 days?: No Do you have a sore throat?: No Do you have a cough?: No Do you have any weakness?: Yes Do you have any diarrhea?: No Are you experiencing any unusual bleeding?: No Do you have any muscle aches/pain?: Yes Do you have any abdominal pain?: No Are you experiencing loss of taste or smell?: No Other Medical History Have you received the Flu Vaccine for this season: No Have you received the Pneumonia Vaccine: Yes <Gilson Mendoza ([facility]), [facility] - Last Filed: 11/16/24 18:49> ENT Ears, Nose, Mouth, and Throat: Reports neck pain Musculoskeletal Musculoskeletal: Reports system reviewed and no additional complaints, except as documented, Reports as per HPI, Reports arthralgias, Reports myalgias and Reports neck pain <Shabana Albarado DO - Last Filed: 11/16/24 15:24> ROS Obtained: Yes All systems reviewed & no additional complaints except as documented Physical Exam <[facility] - Last Filed: 11/16/24 18:49> ENT ENT exam: Present mucous membranes moist Expanded ENT Exam Comment: Deformity noted to bottom jaw. Neck Neck exam: Present normal inspection, full ROM and tenderness <Shabana Albarado DO - Last Filed: 11/16/24 15:24> General General appearance: alert and in no apparent distress Respiratory Respiratory exam: Present normal lung sounds bilaterally; Absent respiratory distress or wheezes Cardiovascular Cardiovascular exam: Present regular rate Neurological Exam Neurological exam: Present alert, oriented X3, CN II-XII intact and normal gait; Absent motor sensory deficit Medical Decision Making <Gilson Mendoza ([facility]), [facility] - Last Filed: 11/16/24 18:49> Medical Records Medical records reviewed: Yes I reviewed the patient's medical records. Screening: Per USPSTF and CDC recommendations, given the prevalence of disease in our region, it is our hospital?s policy to screen for HIV and viral Hepatitis for all patients aged 18 and over and those with ongoing risk factors. Vital Signs: 11/16/24 14:48 11/16/24 15:00 11/16/24 15:00 Temperature 97.5 F L Temperature Source Axillary Pulse Rate 59 L 59 L Pulse Rate [Right] 59 L Respiratory Rate 18 Blood Pressure 155/66 H 130/60 Blood Pressure [Right Arm] 155/66 H Blood Pressure Mean Blood Pressure Mean [Right Arm] 95 02 Sat by Pulse Oximetry 97 97 96 Oxygen Delivery Method Room Air Room Air Room Air 11/16/24 15:30 11/16/24 16:00 11/16/24 16:15 Temperature Temperature Source Pulse Rate 56 L 57 L 57 L Pulse Rate [Right] Respiratory Rate Blood Pressure 125/60 149/64 H Blood Pressure [Right Arm] Blood Pressure Mean 81 92 Blood Pressure Mean [Right Arm] 02 Sat by Pulse Oximetry 94 L 95 96 Oxygen Delivery Method Room Air 11/16/24 17:00 11/16/24 17:15 11/16/24 17:31 Temperature Temperature Source Pulse Rate 67 68 67 Pulse Rate [Right] Respiratory Rate Blood Pressure 151/71 H 151/71 H 133/66 Blood Pressure [Right Arm] Blood Pressure Mean Blood Pressure Mean [Right Arm] 02 Sat by Pulse Oximetry 96 95 94 L Oxygen Delivery Method Room Air Room Air 11/16/24 18:00 11/16/24 18:30 11/16/24 19:08 Temperature 98.0 F Temperature Source Pulse Rate 68 68 90 Pulse Rate [Right] Respiratory Rate 13 Blood Pressure 157/65 H 146/68 H 139/65 Blood Pressure [Right Arm] Blood Pressure Mean Blood Pressure Mean [Right Arm] 02 Sat by Pulse Oximetry 93 L 93 L Oxygen Delivery Method Room Air Room Air Lab Data Lab results reviewed: Yes I reviewed the patient's lab results. Lab Results 11/16/24 14:58: VBG pH 7.44 H, VBG pCO2 37.7, VBG pO2 84.0 H, VBG HCO3 25.0, VBG Total CO2 26.1, VBG O2 Saturation 96.6 H, VBG Base Excess 0.8, VBG Lactic Acid 1.2 11/16/24 15:00: WBC 9.1, RBC 3.52 L, Hgb 11.0 L, Hct 32.9 L, MCV 93.5, MCH 31.3 H, MCHC 33.4, RDW 13.9, Plt Count 149, MPV 11.0 H, Neut % (Auto) 86.9 H, Lymph % (Auto) 7.1 L, [place] % (Auto) 5.5, Eos % (Auto) 0.2, Baso % (Auto) 0.1, Neut # (Auto) 7.9 H, Lymph # (Auto) 0.7, [place] # (Auto) 0.5, Eos # (Auto) 0.0, Baso # (Auto) 0.0, PT 10.7, INR 0.95, APTT 27.3, Sodium 138, Potassium 4.6, Chloride 102, Carbon Dioxide 26, Anion Gap 14.6, BUN 42 H, Creatinine 1.10 H, Estimated Creat Clear 35, Estimated GFR 48 L, Est GFR ( Amer) 58 L, Glucose 131 H, Calcium 8.9, Total Bilirubin 0.4, AST 33, ALT 22, Alkaline Phosphatase 83, Troponin I < 0.01, Total Protein 7.0, Albumin 3.8, Globulin 3.2, Albumin/Globulin Ratio 1.2, HCV Ab ERIN w/Rflx PCR Qn Negative, HIV Ag/Ab Combo Qual Negative 11/16/24 15:04: SARS-CoV-2 (PCR) Not detected, Influenza A Untype (PCR) Not detected, Influenza Type B (PCR) Not detected 11/16/24 18:00: Troponin I < 0.01 11/16/24 15:00 11/16/24 15:00 Orders (Tests/Meds): ED MEDICATIONS Discontinued Medications Generic Name Dose Route Start Last Admin Trade Name Freq PRN Reason Stop Dose Admin Diphenhydramine HCl 50 mg 11/16/24 15:22 11/16/24 15:25 Diphenhydramine 50mg/Ml Vial IV 11/16/24 15:23 50 mg ONCE ONE Administration Iopamidol 140 ml 11/16/24 16:33 11/16/24 16:35 Iopamidol-370 (76%);100ml Bottle IV 11/16/24 16:34 140 ml ONCE ONE Administration Methylprednisolone Sodium Succinate 125 mg 11/16/24 15:22 11/16/24 15:25 Methylprednisolone Sod Succ 125mg Vial IV 11/16/24 15:23 125 mg ONCE ONE Administration Sodium Chloride 100 ml 11/16/24 16:33 11/16/24 16:35 0.9 % Sodium Chloride 50 Ml Vial IV 11/16/24 16:34 100 ml ONCE ONE Administration Sodium Chloride 10 ml 11/16/24 16:33 11/16/24 16:35 Sodium Chloride 0.9% 10ml Syr (Rad Only) IV 12/16/24 16:32 10 ml NEEDED PRN Administration Maintain IV Site ORDERS Category Date Time Status CT angio chest PE protocol Stat Cat Scan 11/16/24 14:[address] angio head Stat Cat Scan 11/16/24 14:[address] angio neck Stat Cat Scan 11/16/24 14:[address] cervical spine wo con Stat Cat Scan 11/16/24 14:[address] head/brain wo con Stat Cat Scan 11/16/24 14:57 Completed Complete Blood Count Auto Diff Stat Lab 11/16/24 15:00 Completed Comprehensive Metabolic Panel Stat Lab 11/16/24 15:00 Completed HIV Combo Stat Lab 11/16/24 15:00 Completed Hepatitis C Ab Qual. W/ RFX Stat Lab 11/16/24 15:00 Completed PT INR [Prothrombin Time INR] Stat Lab 11/16/24 15:00 Completed PTT [Activated Partial Thrombo Time] Stat Lab 11/16/24 15:00 Completed Rapid PCR Covid and Flu A/B Stat Lab 11/16/24 15:04 Completed Trop I [Troponin I] Stat Lab 11/16/24 15:00 Completed Troponin I Q3H Lab 11/16/24 18:00 Completed VBG [Venous Blood Gas] Stat RT 11/16/24 14:58 Completed Medical Decision Narrative: In summary patient is a 79-year-old female who presents to the emergency department for evaluation of neck pain status post fall. Patient is hemodynamically stable upon arrival, afebrile. Unremarkable physical exam. Differential diagnosis includes fracture, sprain. Initial workup will be conducted with labs, EKG and CT scan. Initial inventions include nebulizer treatment. Initial workup reviewed by co labs unremarkable CT scan no acute findings. Upon repeat evaluation patient is resting comfortably in bed asking to go home. Given this patient is appropriate for discharge at this time will discharge home <Shabana Albarado, DO - Last Filed: 11/16/24 15:24> Charly Inquiry Pt receiving controlled substance: No Vital Signs: 11/16/24 14:48 11/16/24 15:00 11/16/24 15:00 Temperature 97.5 F L Temperature Source Axillary Pulse Rate 59 L 59 L Pulse Rate [Right] 59 L Respiratory Rate 18 Blood Pressure 155/66 H 130/60 Blood Pressure [Right Arm] 155/66 H Blood Pressure Mean Blood Pressure Mean [Right Arm] 95 02 Sat by Pulse Oximetry 97 97 96 Oxygen Delivery Method Room Air Room Air Room Air 11/16/24 15:30 11/16/24 16:00 11/16/24 16:15 Temperature Temperature Source Pulse Rate 56 L 57 L 57 L Pulse Rate [Right] Respiratory Rate Blood Pressure 125/60 149/64 H Blood Pressure [Right Arm] Blood Pressure Mean 81 92 Blood Pressure Mean [Right Arm] 02 Sat by Pulse Oximetry 94 L 95 96 Oxygen Delivery Method Room Air 11/16/24 17:00 11/16/24 17:15 11/16/24 17:31 Temperature Temperature Source Pulse Rate 67 68 67 Pulse Rate [Right] Respiratory Rate Blood Pressure 151/71 H 151/71 H 133/66 Blood Pressure [Right Arm] Blood Pressure Mean Blood Pressure Mean [Right Arm] 02 Sat by Pulse Oximetry 96 95 94 L Oxygen Delivery Method Room Air Room Air 11/16/24 18:00 11/16/24 18:30 11/16/24 19:08 Temperature 98.0 F Temperature Source Pulse Rate 68 68 90 Pulse Rate [Right] Respiratory Rate 13 Blood Pressure 157/65 H 146/68 H 139/65 Blood Pressure [Right Arm] Blood Pressure Mean Blood Pressure Mean [Right Arm] 02 Sat by Pulse Oximetry 93 L 93 L Oxygen Delivery Method Room Air Room Air Lab Data Lab Results 11/16/24 14:58: VBG pH 7.44 H, VBG pCO2 37.7, VBG pO2 84.0 H, VBG HCO3 25.0, VBG Total CO2 26.1, VBG O2 Saturation 96.6 H, VBG Base Excess 0.8, VBG Lactic Acid 1.2 11/16/24 15:00: WBC 9.1, RBC 3.52 L, Hgb 11.0 L, Hct 32.9 L, MCV 93.5, MCH 31.3 H, MCHC 33.4, RDW 13.9, Plt Count 149, MPV 11.0 H, Neut % (Auto) 86.9 H, Lymph % (Auto) 7.1 L, [place] % (Auto) 5.5, Eos % (Auto) 0.2, Baso % (Auto) 0.1, Neut # (Auto) 7.9 H, Lymph # (Auto) 0.7, [place] # (Auto) 0.5, Eos # (Auto) 0.0, Baso # (Auto) 0.0, PT 10.7, INR 0.95, APTT 27.3, Sodium 138, Potassium 4.6, Chloride 102, Carbon Dioxide 26, Anion Gap 14.6, BUN 42 H, Creatinine 1.10 H, Estimated Creat Clear 35, Estimated GFR 48 L, Est GFR ( Amer) 58 L, Glucose 131 H, Calcium 8.9, Total Bilirubin 0.4, AST 33, ALT 22, Alkaline Phosphatase 83, Troponin I < 0.01, Total Protein 7.0, Albumin 3.8, Globulin 3.2, Albumin/Globulin Ratio 1.2, HCV Ab ERIN w/Rflx PCR Qn Negative, HIV Ag/Ab Combo Qual Negative 11/16/24 15:04: SARS-CoV-2 (PCR) Not detected, Influenza A Untype (PCR) Not detected, Influenza Type B (PCR) Not detected 11/16/24 18:00: Troponin I < 0.01 Orders (Tests/Meds): ED MEDICATIONS Discontinued Medications Generic Name Dose Route Start Last Admin Trade Name Freq PRN Reason Stop Dose Admin Diphenhydramine HCl 50 mg 11/16/24 15:22 11/16/24 15:25 Diphenhydramine 50mg/Ml Vial IV 11/16/24 15:23 50 mg ONCE ONE Administration Iopamidol 140 ml 11/16/24 16:33 11/16/24 16:35 Iopamidol-370 (76%);100ml Bottle IV 11/16/24 16:34 140 ml ONCE ONE Administration Methylprednisolone Sodium Succinate 125 mg 11/16/24 15:22 11/16/24 15:25 Methylprednisolone Sod Succ 125mg Vial IV 11/16/24 15:23 125 mg ONCE ONE Administration Sodium Chloride 100 ml 11/16/24 16:33 11/16/24 16:35 0.9 % Sodium Chloride 50 Ml Vial IV 11/16/24 16:34 100 ml ONCE ONE Administration Sodium Chloride 10 ml 11/16/24 16:33 11/16/24 16:35 Sodium Chloride 0.9% 10ml Syr (Rad Only) IV 12/16/24 16:32 10 ml NEEDED PRN Administration Maintain IV Site ORDERS Category Date Time Status CT angio chest PE protocol Stat Cat Scan 11/16/24 14:[address] angio head Stat Cat Scan 11/16/24 14:[address] angio neck Stat Cat Scan 11/16/24 14:[address] cervical spine wo con Stat Cat Scan 11/16/24 14:[address] head/brain wo con Stat Cat Scan 11/16/24 14:57 Completed Complete Blood Count Auto Diff Stat Lab 11/16/24 15:00 Completed Comprehensive Metabolic Panel Stat Lab 11/16/24 15:00 Completed HIV Combo Stat Lab 11/16/24 15:00 Completed Hepatitis C Ab Qual. W/ RFX Stat Lab 11/16/24 15:00 Completed PT INR [Prothrombin Time INR] Stat Lab 11/16/24 15:00 Completed PTT [Activated Partial Thrombo Time] Stat Lab 11/16/24 15:00 Completed Rapid PCR Covid and Flu A/B Stat Lab 11/16/24 15:04 Completed Trop I [Troponin I] Stat Lab 11/16/24 15:00 Completed Troponin I Q3H Lab 11/16/24 18:00 Completed VBG [Venous Blood Gas] Stat RT 11/16/24 14:58 Completed ECG Data Tracing #1: I reviewed this ECG and interpreted as documented below: Sinus bradycardia with a ventricular to [address] changes concerning for ischemia. Normal intervals ECG initial impression date: 11/16/24 ECG initial impression time: 14:50 <Maldonado Samuel MD - Last Filed: 11/17/24 19:18> Vital Signs: 11/16/24 14:48 11/16/24 15:00 11/16/24 15:00 Temperature 97.5 F L Temperature Source Axillary Pulse Rate 59 L 59 L Pulse Rate [Right] 59 L Respiratory Rate 18 Blood Pressure 155/66 H 130/60 Blood Pressure [Right Arm] 155/66 H Blood Pressure Mean Blood Pressure Mean [Right Arm] 95 02 Sat by Pulse Oximetry 97 97 96 Oxygen Delivery Method Room Air Room Air Room Air 11/16/24 15:30 11/16/24 16:00 11/16/24 16:15 Temperature Temperature Source Pulse Rate 56 L 57 L 57 L Pulse Rate [Right] Respiratory Rate Blood Pressure 125/60 149/64 H Blood Pressure [Right Arm] Blood Pressure Mean 81 92 Blood Pressure Mean [Right Arm] 02 Sat by Pulse Oximetry 94 L 95 96 Oxygen Delivery Method Room Air 11/16/24 17:00 11/16/24 17:15 11/16/24 17:31 Temperature Temperature Source Pulse Rate 67 68 67 Pulse Rate [Right] Respiratory Rate Blood Pressure 151/71 H 151/71 H 133/66 Blood Pressure [Right Arm] Blood Pressure Mean Blood Pressure Mean [Right Arm] 02 Sat by Pulse Oximetry 96 95 94 L Oxygen Delivery Method Room Air Room Air 11/16/24 18:00 11/16/24 18:30 11/16/24 19:08 Temperature 98.0 F Temperature Source Pulse Rate 68 68 90 Pulse Rate [Right] Respiratory Rate 13 Blood Pressure 157/65 H 146/68 H 139/65 Blood Pressure [Right Arm] Blood Pressure Mean Blood Pressure Mean [Right Arm] 02 Sat by Pulse Oximetry 93 L 93 L Oxygen Delivery Method Room Air Room Air Lab Data Lab Results 11/16/24 14:58: VBG pH 7.44 H, VBG pCO2 37.7, VBG pO2 84.0 H, VBG HCO3 25.0, VBG Total CO2 26.1, VBG O2 Saturation 96.6 H, VBG Base Excess 0.8, VBG Lactic Acid 1.2 11/16/24 15:00: WBC 9.1, RBC 3.52 L, Hgb 11.0 L, Hct 32.9 L, MCV 93.5, MCH 31.3 H, MCHC 33.4, RDW 13.9, Plt Count 149, MPV 11.0 H, Neut % (Auto) 86.9 H, Lymph % (Auto) 7.1 L, [place] % (Auto) 5.5, Eos % (Auto) 0.2, Baso % (Auto) 0.1, Neut # (Auto) 7.9 H, Lymph # (Auto) 0.7, [place] # (Auto) 0.5, Eos # (Auto) 0.0, Baso # (Auto) 0.0, PT 10.7, INR 0.95, APTT 27.3, Sodium 138, Potassium 4.6, Chloride 102, Carbon Dioxide 26, Anion Gap 14.6, BUN 42 H, Creatinine 1.10 H, Estimated Creat Clear 35, Estimated GFR 48 L, Est GFR ( Amer) 58 L, Glucose 131 H, Calcium 8.9, Total Bilirubin 0.4, AST 33, ALT 22, Alkaline Phosphatase 83, Troponin I < 0.01, Total Protein 7.0, Albumin 3.8, Globulin 3.2, Albumin/Globulin Ratio 1.2, HCV Ab ERIN w/Rflx PCR Qn Negative, HIV Ag/Ab Combo Qual Negative 11/16/24 15:04: SARS-CoV-2 (PCR) Not detected, Influenza A Untype (PCR) Not detected, Influenza Type B (PCR) Not detected 11/16/24 18:00: Troponin I < 0.01 Orders (Tests/Meds): ED MEDICATIONS Discontinued Medications Generic Name Dose Route Start Last Admin Trade Name Freq PRN Reason Stop Dose Admin Diphenhydramine HCl 50 mg 11/16/24 15:22 11/16/24 15:25 Diphenhydramine 50mg/Ml Vial IV 11/16/24 15:23 50 mg ONCE ONE Administration Iopamidol 140 ml 11/16/24 16:33 11/16/24 16:35 Iopamidol-370 (76%);100ml Bottle IV 11/16/24 16:34 140 ml ONCE ONE Administration Methylprednisolone Sodium Succinate 125 mg 11/16/24 15:22 11/16/24 15:25 Methylprednisolone Sod Succ 125mg Vial IV 11/16/24 15:23 125 mg ONCE ONE Administration Sodium Chloride 100 ml 11/16/24 16:33 11/16/24 16:35 0.9 % Sodium Chloride 50 Ml Vial IV 11/16/24 16:34 100 ml ONCE ONE Administration Sodium Chloride 10 ml 11/16/24 16:33 11/16/24 16:35 Sodium Chloride 0.9% 10ml Syr (Rad Only) IV 12/16/24 16:32 10 ml NEEDED PRN Administration Maintain IV Site ORDERS Category Date Time Status CT angio chest PE protocol Stat Cat Scan 11/16/24 14:[address] angio head Stat Cat Scan 11/16/24 14:[address] angio neck Stat Cat Scan 11/16/24 14:[address] cervical spine wo con Stat Cat Scan 11/16/24 14:[address] head/brain wo con Stat Cat Scan 11/16/24 14:57 Completed Complete Blood Count Auto Diff Stat Lab 11/16/24 15:00 Completed Comprehensive Metabolic Panel Stat Lab 11/16/24 15:00 Completed HIV Combo Stat Lab 11/16/24 15:00 Completed Hepatitis C Ab Qual. W/ RFX Stat Lab 11/16/24 15:00 Completed PT INR [Prothrombin Time INR] Stat Lab 11/16/24 15:00 Completed PTT [Activated Partial Thrombo Time] Stat Lab 11/16/24 15:00 Completed Rapid PCR Covid and Flu A/B Stat Lab 11/16/24 15:04 Completed Trop I [Troponin I] Stat Lab 11/16/24 15:00 Completed Troponin I Q3H Lab 11/16/24 18:00 Completed VBG [Venous Blood Gas] Stat RT 11/16/24 14:58 Completed Medical Decision Narrative: In summary patient is a 79-year-old female who presents to the emergency department for evaluation of neck pain status post fall. Patient is hemodynamically stable upon arrival, afebrile. Unremarkable physical exam. Differential diagnosis includes fracture, sprain. Initial workup will be conducted with labs, EKG and CT scan. Initial inventions include nebulizer treatment. Initial workup reviewed by me labs unremarkable CT scan no acute findings. Upon repeat evaluation patient is resting comfortably in bed asking to go home. Given this patient is appropriate for discharge at this time will discharge home I was consulted by the ESTEBAN, and we discussed the complexity of the problems being addressed.I approved the treatment and management plan for this patient?s care in the Emergency Department, thus performing a substantive portion of the medical decision making.Signed, Maldonado Samuel MD [facility] <Shabana Albarado, DO - Last Filed: 11/16/24 15:24> Critical Care Time Critical Care Time: No
[2024-11-16 15:09] LABS: Coronavirus 19, PCR Not Detected (NotDetected); Influenza A, PCR Not Detected (NotDetected); Influenza B, PCR Not Detected (NotDetected)
[2024-11-16 15:11] LABS: Lactate Venous 1.2 mmol/L (0.4-2.0); VBG Base Excess 0.8 mmol/L (-2.4-2.3); VBG Oxygen Saturation 96.6 % (50-70); VBG PCO2 37.7 mmol/L (35-51); VBG PH 7.44 mmol/L (7.31-7.41); VBG Total CO2 26.1 mmol/L (23-27)
[2024-11-16 15:20] LABS: Albumin Level 3.8 g/dl (3.5-5.0); Basophils % 0.1 % (0.1-2.0); Chloride 102 mmol/L (98-107); Eosinophils % 0.2 % (0.1-12.0); Hematocrit 32.9 % (37.0-47.0); Lymphocytes # 0.7 K/mm3 (0.7-4.5); Lymphocytes % 7.1 % (10-50); Mean Corpuscular HGB Conc 33.4 g/dL (31.8-35.4); Mean Corpuscular Hemoglobin 31.3 pg (27.0-31.2); Mean Corpuscular Volume 93.5 fl (81-99); Monocytes # 0.5 K/mm3 (0.1-1.0); Monocytes % 5.5 % (1.7-9.3); Neutrophils # 7.9 K/mm3 (1.8-7.8); Neutrophils % 86.9 % (37.0-80.0); Nucleated Red Blood Cells # 0 10^3/uL; Nucleated Red Blood Cells % 0 %; Platelet Count 149 K/mm3 (142-424); Potassium 4.6 mmoL/L (3.5-5.1); Red Blood Count 3.52 M/mm3 (4.20-5.40); Red Cell Distribution Width 13.9 % (11.5-17.5); Red Cell Distribution Width-SD 47.5 fL; Sodium 138 mmol/L (136-145); White Blood Count 9.1 K/mm3 (4.8-10.8)
[2024-11-16 15:23] LABS: Alanine Aminotransferase 22 U/L (12-78); Albumin/Globulin Ratio 1.2 (1.1-1.8); Alkaline Phosphatase 83 U/L (38-126); Anion Gap 14.6 mEq/L (5-15); Aspartate Amino Transferase 33 U/L (14-36); Bilirubin,Total 0.4 mg/dl (0.2-1.3); Blood Urea Nitrogen 42 mg/dl (7-17); Calcium 8.9 mg/dl (8.4-10.2); Carbon Dioxide 26 mmol/L (22.0-30.0); Creatinine Clearance Estimated 35 mL/min (50-200); Estimated Glomerular Filt Rate 48 ml/min (>60); GFR (African American) 58 ML/MIN (>60); Globulin 3.2 g/dL (1.3-3.2); Glucose 131 mg/dl (74-100)
[2024-11-16] MEDS: METHYLPREDNISOLONE SOD SUCC 125MG VIAL 125 MG IV (15:25)
[2024-11-16] MEDS: diphenhydrAMINE 50MG/ML VIAL 50 MG IV (15:25)
[2024-11-16 15:36] LABS: Activated Partial Thrombo Time 27.3 seconds (22.8-30.6); INR 0.95 (0.9-1.1); Prothrombin Time 10.7 seconds (10.1-12.5)
[2024-11-16 15:37] LABS: Troponin I < 0.01 ng/ml (0.00-0.034)
[2024-11-16 16:09] LABS: HIV Combo NEGATIVE (Negative)
[2024-11-16 16:17] LABS: Hepatitis C Ab Qual. W/ RFX NEGATIVE (Negative)
[2024-11-16] MEDS: SODIUM CHLORIDE 0.9% 10ML SYR (RAD ONLY) 10 ML IV (16:35)
[2024-11-16] MEDS: IOPAMIDOL-370 (76%);100ML BOTTLE 140 ML IV (16:35)
[2024-11-16] MEDS: 0.9 % SODIUM CHLORIDE 50 ML VIAL 100 ML IV (16:35)
[2024-11-16 18:27] LABS: Troponin I < 0.01 ng/ml (0.00-0.034)
== END 2024-11-16 19:09 | disposition home or self-care (01) ==
PROVIDERS: Emergency Medicine; Nurse Practitioner Family; Emergency Provider Emergency Medicine; PCP Internal Medicine
DX: M54.2 Cervicalgia (principal); R00.1 Bradycardia, unspecified; Z11.59 Encounter for screening for other viral diseases; Z11.4 Encounter for screening for human immunodeficiency virus [HIV]; W19.XXXA Unspecified fall, initial encounter
CPT/HCPCS: 70450; 70496; 70498; 71275; 72125; 80053; 82803; 84484; 85025; 85610; 85730; 86803; 87389; 87636; 93005; 96374; 96375; 99285; J1200; J2919; Q9967

== ENCOUNTER 2025-01-13 16:25 | Outpatient (CLI) | payer MEDICARE, SELFPAY ==
--- OUTSIDE RECORDS SUMMARY | 2020-05-05 07:30 | XMS_ITS | Continuity of Care Document ---
Author Organization [facility] Address [address] [place] [phone] Phone Care Team Providers Care Goldbeater Name Role Phone [facility], Surgery Unavailable Unavailable Procedures Procedure Date EXTENSIVE ECTROPION REPAIR EXTENSIVE ECTROPION REPAIR Pt Doc No Events On Discharge 0 Pt W/o Preop Order For Prophylactic IV A ntibiotic Advance Directives Directive Yes / No Effective Date File Name No Information Encounters Encounter Description Practice Location Reason(s) For Visit Diagnoses Date Provider Providers Copied on Encounter [facility], [address] [place] [address], [id number], [place] tel:[phone] [facility] No Information 0 [facility]. [address] [place] [address], [id number] . tel:[phone] Referring Provider: Feng Hogan MD [facility], [address] [place] [address], [place], [address] . tel:[phone] Family History Family Member Type Diagnosis Age At Onset No Information Payers Payer name Insurance type Covered republican ID Authoriza tion(s) No Information Social History Type Description Quantity Date Captured Comments Sex Female Smoking Status No Information Chief Complaint And Reason For Visit No Information Reason For Referral Reason For Referral No Information History Of Present Illness Encounter Date Complaint History Of Prese nt Illness No Information Functional Status Date Functional Assessmen t No Information Instructions Date Instruction Additional Infor mation No Information Assessments Type Assessment Date No Information Patient Care Teams Name Effective Dates (start - stop) Status Members No Information
--- OUTSIDE RECORDS SUMMARY | 2020-05-20 07:30 | XMS_ITS | Continuity of Care Document ---
Author Organization [facility] Address [address] [place] [phone] Phone Care Team Providers Care Tso Name Role Phone Feng Hogan MD, FACS Unavailable Unavailabl e Allergies, Adverse Reactions, Alerts Substance Reaction Status Criticality No Known allergies Medications Medication Instructions Dosage Effective Dates (start - stop) Status Comments acetaminophen 300 mg-codeine 30 mg tablet 1 PO every 4-6 hrs PRN pain, not to exceed 6 in 24 hrs - Active Erythromycin Opthalmic Ointment 3.5 gm Ophthalmic OINT. (GM) apply to sutures 4 X daily and in affected eye(s) at bedtime for 7 days - Active Procedures Procedure Date POSTOP FOLLOW-UP VISIT EXTENSIVE ECTROPION REPAIR EYE EXAM, NEW PATIENT EYE PHOTOGRAPHY Co Insurance Advance Directives Directive Yes / No Effective Date File Name No Information Encounters Encounter Description Practice Location Reason(s) For Visit Diagnoses Date Provider Providers Copied on Encounter [facility], [address] [place] [address], [id number], tel:[phone] [facility] No Information 0 Samira Toney. [address] [place] [address], [place], [place], [id number] . tel:[phone] Referring Provider: Ag Childers, [address] , [place], [address]. tel:[phone] [facility], [address] [place] [address], [id number], tel:[phone] [facility] Senile ectropion of right lower eyelidSenile ectropion of left lower eyelid Sep-2 0 Samira Toney. [address] [place] [address], [place], [place], [id number] . tel:[phone] Referring Provider: Ag Childers, [address], [place], [address]. tel:[phone] [facility], [address] [place] [address], [id number], tel:[phone] [facility] No Information Sep-1 0 Samira Toney. [address] [place] [address], [id number] . [phone] [facility], [address] [place] [address], [id number], tel:[phone] [facility] Dermatochalas is of right lower eyelidDermato chalasis of left lower eyelidDermato chalasis of right upper eyelidDermato chalasis of left upper eyelidOther atrophic disorders of skinSenile ectropion of left lower eyelidSenile ectropion of right lower eyelidDisorde r of ligament, unspecified siteDisorder of ligament, unspecified siteConjuncti jose hyperemia, bilateralPunc gonzalez keratitis, bilateral Sep-0 0 Samira Toney. [address] [place] [address], [place], [place], [id number] . tel:[phone] Referring Provider: Ag Childers, [address], [place], [address]. tel:[phone] Family History Family Member Type Diagnosis Age At Onset No Information Payers Payer name Insurance type Covered alliance party ID Authoriza tion(s) No Information Social History Type Description Quantity Date Captured Comments Alcohol Use Details Unknown Caffeine Use Details Unknown Tobacco Use Status No Information Smoking Status No Information Sex Female Chief Complaint And Reason For Visit No Information Reason For Referral Reason For Referral No Information Plan Of Treatment Date Type Action Status Appointment Nishi Horner Last Seen 2019 BOOKED History Of Present Illness Encounter Date Complaint History Of Prese nt Illness No Information Functional Status Date Functional Assessmen t No Information Instructions Date Instruction Additional Infor mation No Information Assessments Type Assessment Date No Information Patient Care Teams Name Effective Dates (start - stop) Status Members No Information
--- OUTSIDE RECORDS SUMMARY | 2025-01-13 16:27 | XMS_ITS | Encounter Summary ---
Author Organization Healthcare Address [address] [place] [address] Care Team Providers Care Cotton Ginner Name Role Phone Hema Velazquez MD Primary Care Provider [phone] Lawanda Man CCC-MEDICARE BILLER Unavailable [phone] Encounter Details Date Type Department Care Team (Late st Contact Info) Description 03/16/2021 Telephone [facility] [address] [place] [address] [address] [place] [address] Dental, Provider, DDS [address] [id number] Social History Tobacco Use Types Packs/Day Years Used Date Smoking Tobacco: Former Smokeless Tobacco: Never Comments:quit in 2000 Alcohol Use Standard Drinks/Week Comments Never 0 (1 standard drink = 0.6 oz pur e alcohol) Comments No Sex and Gender Information Value Date Recorded Sex Assigned at Not on file Legal Sex Female 7:52 PM EDT Gender Identity Not on file Sexual Orientation Not on file COVID-19 Exposure Response Date Recorded In the last month, have you been in contact with someone who was confirmed or suspected to have Coronavirus / COVID-19? No / Unsure 03/10/2021 9:12 AM EDT documented as of this encounter Functional Status * Are you deaf or do you have serious difficulty hearing? Answer Date of Assessment Author No 01/29/2021 5:00 PM EDT Jesise Isidro RN * Are you blind or do you have serious difficulty seeing, even when wearing glasses? Answer Date of Assessment Author No 01/29/2021 5:00 PM EDT Jessie Isidro RN * Do you have serious difficulty walking or climbing stairs? Answer Date of Assessment Author Yes 01/29/2021 5:00 PM EDT Jessie Isidro RN * Do you have serious difficulty dressing or bathing? Answer Date of Assessment Author Yes 01/29/2021 5:00 PM EDT Jessie Isidro RN * Because of a physical, mental, or emotional condition, do you have serious difficulty doing errandsalone such as visiting the doctor? Answer Date of Assessment Author Yes 01/29/2021 5:00 PM EDT Jessie Isidro RN documented as of this encounter Mental Status * Because of a physical, mental, or emotional condition, do you have serious difficulty concentrating, remembering, or making decisions? (5 years old or older) Answer Entry Date Author No 01/29/2021 5:00 PM Jessie Gardiner RN documented in this encounter Plan of Treatment Not on file documented as of this encounter Visit Diagnoses Not on filedocumented in this encounter Additional Health Concerns Assessment Noted Time A fall risk assessment has been complete d for the patient 03/10/2021 9:23 AM EDT documented as of this encounter Care Teams Cotton Ginner Relationship Specialty Start Date End Date Hema Velazquez MD [facility] [address] [place] [address] PCP - General 12/18/20 Lawanda Man [facility]-MEDICARE BILLER [address] [place] [address] [id number] [place] [address] Speech Language Pathologist Speech Pathology 06/28/22 documented as of this encounter
--- OUTSIDE RECORDS SUMMARY | 2025-01-13 16:27 | XMS_ITS | Encounter Summary ---
Author Organization Healthcare Address [address] [place] [address] Care Team Providers Care Showroom Manager Name Role Phone Hema Velazquez MD Primary Care Provider [phone] Lawanda Man CCC-STORM WINDOW INSTALLER Unavailable [phone] Reason for Visit * Reason Comments Med Refill Encounter Details Date Type Department Care Team (Late st Contact Info) Description 12/31/2021 Refill [facility] [address], [address] [place] [address] Gordo Kaplan MD [address] [facility] [address] [place] [address] Rash and nonspecific skin eruption Social History Tobacco Use Types Packs/Day Years Used Date Smoking Tobacco: Former Smokeless Tobacco: Never Comments:quit in 2000 Alcohol Use Standard Drinks/Week Comments Never 0 (1 standard drink = 0.6 oz pur e alcohol) PHQ-2 Answer Date Recorded Patient Health Questionnaire-2 Score 0 09/21/2021 Comments No Sex and Gender Information Value Date Recorded Sex Assigned at Not on file Legal Sex Female 7:52 PM EDT Gender Identity Not on file Sexual Orientation Not on file documented as of this encounter Functional Status * Are you deaf or do you have serious difficulty hearing? Answer Date of Assessment Author No 01/29/2021 5:00 PM EDT Jessie Isidro RN * Are you blind or [...] Entry Date Author No 01/29/2021 5:00 PM EDT Jessie Isidro RN documented in this encounter Miscellaneous Notes * Telephone Encounter - Lelia Domínguez RN - 01/04/2022 9:58 AM EDT Patient to receive from PCP if needed documented in this encounter Plan of Treatment Not on file documented as of this encounter Visit Diagnoses Diagnosis Rash and nonspecific skin eruption Rash and other nonspecific skin eruption documented in this encounter Additional Health Concerns Assessment Noted Time A fall risk assessment has been complete d for the patient 10/27/2021 2:18 PM EDT documented as of this encounter Care Teams Showroom Manager Relationship Specialty Start Date End Date Hema Velazquez MD [address] [facility] [address] [place] [address] PCP - General 12/18/20 Lawanda Man [facility]-STORM WINDOW INSTALLER [address] [facility] [id number] [place] [address] Speech Language Pathologist Speech Pathology 06/28/22 documented as of this encounter
--- OUTSIDE RECORDS SUMMARY | 2025-01-13 16:27 | XMS_ITS | Encounter Summary ---
Author Organization Healthcare Address [address] [place] [address] Care Team Providers Care New Account Interviewer Name Role Phone Hema Velazquez MD Primary Care Provider [phone] Lawanda Man [facility] Unavailable [phone] Reason for Visit * Auth/Cert Specialty Diagnoses / Procedures Referred By Contac t Referred To Contact Diagnoses Osteomyelitis of mandible Osteomyelitis Of Mandible Procedures ID BONE-SKIN GRAFT, MICROVASCULAR LEFT Fibula Free Flap For Mandible Reconstruction, Sulcusplasty, Hardware Removal, Neck Dissection MANDIBULECTOMY Romeo Ochoa MD [address] [facility] [address] [place] [address] Phone: tel: fax: [facility] [address] [place] [address] Phone: tel: Referral ID Status Reason Start Date Expiration Date Visits Re quested Visits Authorized [id number] 1 Encounter Details Date Type Department Care Team (Late st Contact Info) Description 01/18/2021 Lab Requisition [facility] [address] [place] [address] Erika Willard MD [address] [facility] [address] [facility] [address] [place] [address] Encounter for general adult medical examination without abnormal findings Social History Tobacco Use Types Packs/Day Years [...] have Coronavirus / COVID-19? No / Unsure 01/11/2021 11:26 AM EDT documented as of this encounter Functional Status * Calculated C-SSRS Risk Score (Lifetime/Recent) Answer Date of Assessment Author No Risk Indicated 01/20/2021 8:00 PM EDT Deja Cantu RN * Question Answer Date of Assessment Author 1. Wish to be (Past 1 Month) No 021 8:00 PM EDT Deja Cantu RN 2. Non-Specific Active Suici caty Thoughts (Past 1 Month) No 01/20/2021 8:00 PM EDT Deja Cantu RN 6. Suicidal Behavior (Lifetime) No 8:00 PM EDT Deja Cantu RN documented as of this encounter Plan of Treatment Not on file documented as of this encounter Procedures Procedure Name Priority Date/Time Associated Diagnosis Comments MULTI DRUG RESISTANCE TEST Routine 01/18/2021 10:59 AM EDT Encounter for general adult medical examination without abnormal findings documented in this encounter Results * Multi Drug Resistance Test (01/18/2021 10:59 AM EDT) Culture No growth at day 2 01/20/2021 8:34 AM EDT [facility] Swab (Nares and Rena Rectal) 01/18/2021 10:59 AM EDT 01/18/2021 11:50 AM EDT us Erika Reyes MD LAB MICROBIOLOGY - GENERAL ORDERABLES Final Result [facility] [address] [place] [address] documented in this encounter Visit Diagnoses Diagnosis Encounter for general adult medical examination without abnormal findings documented in this encounter Care Teams New Account Interviewer Relationship Specialty Start Date End Date Hema Velazquez MD [address] [place] [id number] PCP - General 12/18/20 Lawanda Man, [facility] [address] [facility] [id number] [place] [address] Speech Language Pathologist Speech Pathology 06/28/22 documented as of this encounter
--- OUTSIDE RECORDS SUMMARY | 2025-01-13 16:27 | XMS_ITS | Encounter Summary ---
Author Organization Healthcare Address [address] [place] [address] Care Team Providers Care Tire And Tube Repairer Name Role Phone Hema Velazquez MD Primary Care Provider [phone] Lawanda Man CCC-ASSISTANT PROFESSOR OF BIOLOGY Unavailable [phone] Encounter Details Date Type Department Care Team (Late st Contact Info) Description 11/14/2024 Telephone [facility] [address] [place] [address] Tip Lubin Social History Tobacco Use Types Packs/Day Years Used Date Smoking Tobacco: Former Cigarettes Q uit: 2000 Smokeless Tobacco: Never Comments:quit in 2000 Alcohol Use Standard Drinks/Week Comments Not Currently 0 (1 standard drink = 0.6 oz pur e alcohol) PHQ-2 Answer Date Recorded Patient Health Questionnaire-2 Score 0 04/02/2024 PHQ-2A Answer Date Recorded Patient Health Questionnaire-2 Score 0 10/11/2022 Comments No Sex and Gender Information Value Date Recorded Sex Assigned at Not on file Legal Sex Female 7:52 PM EDT Gender Identity Not on file Sexual Orientation Not on file documented as of this encounter Functional Status * Are you deaf or do you have serious difficulty hearing? Answer Date of Assessment Author No 01/29/2021 5:00 PM THOMAST Jessie Isidro RN * Are you blind or do you have serious difficulty seeing, even when wearing glasses? Answer Date of Assessment Author No 01/29/2021 5:00 PM Jessie Gardiner RN * Do you have serious difficulty [...] encounter Miscellaneous Notes * Telephone Encounter - Tip Lubin - 11/14/2024 1:48 PM EDT WQ: I called the patient to see if she would like to see speech therapy; the patient stated that she would like to cancel the referral. documented in this encounter Plan of Treatment Not on file documented as of this encounter Visit Diagnoses Not on filedocumented in this encounter Additional Health Concerns Assessment Noted Time A fall risk assessment has been complete d for the patient 04/02/2024 1:08 PM EDT A Body Mass Index follow-up plan has been documented for the patient 04/08/2024 4:01 PM EDT documented as of this encounter Care Teams Tire And Tube Repairer Relationship Specialty Start Date End Date Hema Velazquez MD [id number] [place] [address] PCP - General 12/18/20 Lawanda Man [facility]-ASSISTANT PROFESSOR OF BIOLOGY [address] [facility] [id number] [place] [address] Speech Language Pathologist Speech Pathology 06/28/22 documented as of this encounter
--- OUTSIDE RECORDS SUMMARY | 2025-01-13 16:28 | XMS_ITS | Clinical Summary ---
Author Organization [facility] Address [address] 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 60 tablet 11 01/30/20 Active Additional Information Patient not taking.Reported on 10/11/2022 levETIRAcetam (Keppra) 500 MG tablet Take 1 tablet (500 mg total) by mouth 1 (one) time each day. 30 tablet 01/31/20 Active Additional Information Patient taking differently:500 mgPer G TubeDaily, Reported on 10/05/2023 albuterol (2.5 MG/3ML) 0.083% nebulizer solution Take 3 mL (2.5 mg total) by nebulization 4 (four) times a day. 75 mL 11 01/30/20 21 Active Additional Information Patient taking differently:2.5 mg NebulizationAs needed, Reported on 10/05/2023 amLODIPine (Norvasc) 5 MG tablet Take 1 tablet (5 mg total) by mouth 1 (one) time each day. 30 tablet 11 01/31/20 21 Active Additional Information Patient taking differently:5 mgPer G TubeDaily, Reported on 10/05/2023 bacitracin 500 UNIT/GM ointment Apply thin layer to incision once daily 14 g 01/31/20 21 Active Additional Information Patient not taking.Reported on 02/25/2021 chlorhexidine (Peridex) 0.12 % solution Use 15 mL in the mouth or throat 4 (four) times a day. 600 mL 01/30/20 21 Active Additional Information Patient not taking.Reported on 10/05/2023 chlorhexidine (Peridex) 0.12 % solution Use 15 mL in the mouth or throat 5 (five) times a day. Swish and spit oral solution five times per day (after meals, in am and before bed) 1893 mL 01/30/20 21 Active metoprolol succinate XL (Toprol-XL) 25 MG 24 hr tablet 1 tablet (25 mg) 2 (two) times a day. 12/19/19 16 Active apixaban (Eliquis) 2.5 MG tablet 1 tablet (2.5 mg) by Per G Tube route 2 (two) times a day. 11/04/19 20 Active melatonin 3 MG tablet 2 tab(s) by gastrostomy tube once a day (at bedtime) 08/11/19 18 Active Banophen 50 MG capsule TAKE ONE CAPSULE BY MOUTH [address] scan 11/04/19 21 Active nystatin-triamc inolone (Mycolog II) ointmentIndicat ions:Rash and nonspecific skin eruption Apply thin film to affected areas twice daily. 30 g 1 03/11/20 21 Active Additional Information Patient not taking.Reported on 04/02/2024 multivitamin (Theragran) tablet Take 1 tablet by mouth 1 (one) time each day. Active amoxicillin (Amoxil) 500 MG capsule Take 1 capsule by mouth 2 (two) times a day. 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5/28 on first lab draw in OR. Prior H/H in early January 15 C/b surgery and chronic anticoagulation Continue to follow lab trends and signs of bleeding Thrombocytopenia 01/14/2021 Overview (01/14/2021): Plt 105 on admission/first check (195 in early January) C/b surgery, blood loss and anticoagulation Follow lab trends and signs of bleeding Episode of recurrent major depressive disorder 0 01/13/2021 Overview (01/13/2021): Continue home Wellbutrin PT Complicates all aspects of care. Chronic deep vein thrombosis (DVT) of distal vein of both lower extremities 01/13/2021 Overview (01/14/2021): Resume Eliquis today and continue pLov for a couple of days w/ initiation per primary Acute postoperative pain 01/13/2021 Overview (01/14/2021): Continue scheduled Tylenol, PRN Oxycodone Gastroesophageal reflux disease without esophagi tis 01/13/2021 Overview (01/13/2021): Continue Pepcid Seizure after head injury 01/13/2021 Overview (01/13/2021): History of traumatic SAH Placed on Keppra outpatient Continue inpatient Hx of pulmonary embolus 01/13/2021 Overview (01/14/2021): Resume Eliquis and continue PLov per primary Stress hyperglycemia 01/13/2021 Overview (01/13/2021): Sliding scale insulin Finger sticks every 6 hours Acute postoperative respiratory failure 01/13/20 Overview (01/14/2021): Trached Hypoxia overnight requiring vent support, likely from plugged trach seen after inner cannula replaced Place back on TC Aggressive pulmonary toilet Chronic renal impairment, stage 3 (moderate) 08/2020 Overview (01/27/2021): THIS APPEARS TO BE AN ERRONEOUS DIAGNOSIS. - creatinine dropped below 1.0 this admission and has remained there. BUN/Cr on admission 51/1.35 Now 28/0.96 Monitor UOP and renal labs for signs of recovery Avoid nephrotoxins, hypotension, NSAIDS, and IV contrast Renally dose medications to GFR of 46 Mild asthma without complication 01/05/2021 Overview (01/12/2021): Will continue routine scheduled and PRN bronchodilator therapy. 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 Continue metoprolol 25mg BID when appropriate. Osteomyelitis of mandible 03/18/2016 Chronic osteomyelitis 03/18/2016 Malignant neoplasm of major salivary gland, unsp ecified Overview (01/05/2021): Salivary gland cancer s/p resection, radiation and chemo in 2006 Resolved Problems Problem Noted Date Diagnosed Date Resolved Date Hypophosphatemia 01/13/2021 01/14/2021 Overview (01/13/2021): Replace per ICU sliding scale policy Continue close assessment H/O oral cancer 01/12/2021 01/13/2021 Atypical chest pain 01/05/2021 01/15/20 21 Overview (01/12/2021): ECG normal Monitor signs chest pain. Difficult intubation 01/05/2021 021 Overview (01/12/2021): Trached. Encounters Date Type Department Care Team Description 11/14/2024 Telephone [facility] [address] [place] [address] Tip Lubin from Last 3 Months Family History Medical History Relation Name Comments Cardiac disorder Other 1 Kidney disease Other 2 Other cancer Other 3 Anesthesia problems Neg Hx Malig Hyperthermia Neg Hx Relation Name Status Comments Other 1 Other 2 Other 3 Social History Tobacco Use Types Packs/Day Years Used Date Smoking Tobacco: Former Cigarettes Q uit: 2000 Smokeless Tobacco: Never Tobacco Cessation:Counseling Given: Not Answered Comments:quit in 2000 Alcohol Use Standard Drinks/Week [...] on file Sexual Orientation Not on file Last Filed Vital Signs Vital Sign Reading Time Taken Comments Blood Pressure 148/68 04/02/2024 1:04 PM EDT Pulse 64 04/02/2024 1:04 PM EDT Temperature 36.5 C (97.7 F) 04/02/2024 1:04 PM EDT Respiratory Rate 16 10/05/2023 12:3 5 PM EST Oxygen Saturation 98% 01/05/2022 2:46 PM EDT Inhaled Oxygen Concentration - - Weight 53.8 kg (118 lb 11.2 oz) 04/02/2024 1:04 PM EDT Height 154 cm (5' 0.63 ) 04/02/2024 1:04 PM EDT Body Mass Index 22.7 04/02/2024 1:04 PM EDT Plan of Treatment Health Maintenance Due Date Last Done Comments Dental Oral Exam 1945 Dental Prophylaxis 1945 Dental X-Ray: Bitewings 1946 Dental X-Ray: Full Mouth 1946 [facility]-Bone Density Scan 1946 [facility]-Hepatitis C Screening 1946 [facility]-Medicare Annual Wellness (AWV) 1946 [facility]-/Child/Adol SDOH Screenings 1946 [facility]- SDOH Screenings 1964 [facility]-Adult SDOH Screenings 1964 [facility]-Pneumococcal Vaccine: 50+ Years (1 of 2 - PCV) 1965 [facility]-Zoster Vaccines (1 of 2) 1965 [facility]-ZFYUT-24 Vaccine (3 - Moderna risk series) 11/11/2020 10/14/2020, 09/16/2020 [facility]-RSV Vaccine: 60+ Years or (1 - 1-dose 75+ series) 2021 [facility]-Depression Screening 04/02/2025 04/02/2024 [facility]-Influenza Vaccine (Season Ended) 2025 [facility]-DTaP,Tdap,and Td Vaccines (3 - Td or Tdap) 07/22/2032 07/22/2022, 02/19/2008, 04/29/1997 HPV Vaccines Aged Out No longer eligi ble based on patient's age to complete this topic [facility]-HIB Vaccines Aged Out No longer e ligible based on patient's age to complete this topic [facility]-Hepatitis A Vaccines Aged Out No longer eligible based on patient's age to complete this topic [facility]-IPV Vaccines Aged Out No longer e ligible based on patient's age to complete this topic [facility]-Rotavirus Vaccines Aged Out No lo nger eligible based on patient's age to complete this topic Medical Devices Implanted Type Area Hot Mill Worker Device Identifier Shelf Expiration Date Model / Serial / Lot Screw 1.85mm Ti Matrixwave Mmf Self Drill 8mm - [id number] Implanted:Qty: 6 on 01/12/2021 by Romeo Ochoa MD at [facility] Left: [employer] [id number] 04.503.82 5.01 / / Plate 7x23h Angle Recon Right2 - [id number] Implanted:Qty: 1 on 01/12/2021 by Romeo Ochoa MD at [facility] Left: [employer] [id number] 04.503.73 3 / / Plate Double Angle Recon Small 2.0mm - [id number] Implanted:Qty: 1 on 01/12/2021 by Romeo Ochoa MD at [facility] Left: [employer] [id number] 04.503.73 4 / / Screw 2.4mm Matrixmandible St 8mm - [id number] Implanted:Qty: 2 on 01/12/2021 by Romeo Ochoa MD at [facility] Left: [employer] [id number] 04.503.43 8.01 / / Screw 2.4mm Matrixmandible Lock St 8mm - [id number] Implanted:Qty: 10 on 01/12/2021 by Romeo Ochoa MD at [facility] Left: [id number] 04.503.63 8.01 / / Screw 2.4mm Matrixmandible Lock St 10mm - [id number] Implanted:Qty: 5 on 01/12/2021 by Romeo Ochoa MD at [facility] Left: [employer] [id number] 04.503.64 0.01 / / Insurance [employer] CLAIMS DENTAL [employer] MEDICARE Advance Directives Documents on File Type Date Recorded Patient Reel Man Expl anation Advance Directives and Livin g Will 05/23/2021 2:45 PM Care Teams Manufacturing Plant Controller Relationship Specialty Start Date End Date Hema Velazquez MD [address] [facility] [address] [place] [address] PCP - General 12/18/20 Lawanda Man, [facility] SUPERVISOR [address] [place] [address] [id number] [place] [address] Speech Language Pathologist Speech Pathology 06/28/22
--- NOTE | 2025-01-13 16:33 | XR_ITS ---
PROCEDURE INFORMATION: Exam: XR Chest Exam date and time: 01/13/2025 4:44 PM Age: 79 years old Clinical indication: Cough and fever and shortness of breath; Additional info: Fever, productive cough TECHNIQUE: Imaging protocol: Radiologic exam of the chest. Views: 2 views. PA and Lateral COMPARISON: CT ANGIO CHEST PE PROTOCOL 11/16/2024 4:38 PM FINDINGS: Tubes, catheters and devices: Surgical clips overlie the right abdomen. Surgical clips overlie the left chest region. Lungs: The lungs appear clear without pulmonary venous congestion. Pleural spaces: No pleural effusion. No pneumothorax. Heart/Mediastinum: Coronary arterial calcifications are demonstrated. Vasculature: Moderate atherosclerotic calcification demonstrated within the aorta. Diaphragm: Elevation of the right hemidiaphragm is demonstrated. Bones/joints: Diffusely decreased bone density. Generalized bony degenerative changes. Soft tissues: Left mastectomy postsurgical changes are demonstrated. IMPRESSION: 1. No evidence for an acute cardiopulmonary process. 2. Degenerative and postsurgical changes are demonstrated, as described above.
== END 2025-01-13 23:59 | disposition home or self-care (01) ==
LOC: RAD 16:26
PROVIDERS: PCP Internal Medicine; Visit Provider Internal Medicine
DX: I25.10 Atherosclerotic heart disease of native coronary artery without angina pectoris (principal); I70.0 Atherosclerosis of aorta; M15.9 Polyosteoarthritis, unspecified; R05.8 Other specified cough; R50.9 Fever, unspecified
CPT/HCPCS: 71046

== ENCOUNTER 2025-02-20 14:21 | Outpatient (CLI) | payer MEDICARE, SELFPAY ==
--- OUTSIDE RECORDS SUMMARY | 2025-02-04 12:30 | XMS_ITS | Encounter Summary ---
Author Organization Healthcare Address [address] [place] [address] Care Team Providers Care Research Laboratory Specialist Name Role Phone Hema Velazquez MD Primary Care Provider [phone] Lawanda Man CCC-BINDER CHAINSTITCH Unavailable [phone] Reason for Visit * Reason Comments Follow-up Encounter Details Date Type Department Care Team (Late st Contact Info) Description 02/04/2025 12:30 PM EDT Office Visit [place] [facility] [address], [address]st [place] [address] Bre Del Cid, HOTEL OFFICE MANAGER [address] [place] [address] Feeding tube dysfunction, initial encounter [...] Consent obtained: Verbal Consent given by: Patient Hackett protocol: Procedure explained and questions answered to [...] Patient Risks discussed: Bleeding, infection and pain Hackett protocol: Procedure explained and questions answered to [...] Patient Risks discussed: Bleeding, infection and pain Hackett protocol: Procedure explained and questions answered to [...] Consent obtained: Verbal Consent given by: Patient Hackett protocol: Procedure explained and questions answered to [...] documented as of this encounter Care Teams Research Laboratory Specialist Relationship Specialty Start Date End Date Hema Velazquez MD [address] [place] [address] [address] [place] [address] PCP - General 12/18/20 Lawanda Man [facility]-BINDER CHAINSTITCH 0 [facility] [id number] [place] [address] Speech Language Pathologist Speech Pathology 06/28/22 documented as of this encounter
[2025-02-20 17:16] LABS: Hematocrit 34.3 % (37.0-47.0); Hemoglobin 11.7 g/dL (12.2-16.2); Immature Granulocytes % 0.3 %; Mean Corpuscular HGB Conc 34.1 g/dL (31.8-35.4); Mean Corpuscular Hemoglobin 32.4 pg (27.0-31.2); Mean Corpuscular Volume 95.0 fl (81-99); Nucleated Red Blood Cells % 0 %; Platelet Count 167 K/mm3 (142-424); Red Blood Count 3.61 M/mm3 (4.20-5.40); Red Cell Distribution Width-SD 48.2 fL; White Blood Count 6.7 K/mm3 (4.8-10.8)
[2025-02-20 17:45] LABS: Albumin Level 4.4 g/dl (3.5-5.0); Chloride 97 mmol/L (98-107); Potassium 4.9 mmoL/L (3.5-5.1); Sodium 137 mmol/L (136-145)
[2025-02-20 17:47] LABS: Alanine Aminotransferase 10 U/L (12-78); Anion Gap 12.9 mEq/L (5-15); Aspartate Amino Transferase 26 U/L (14-36); Blood Urea Nitrogen 47 mg/dl (7-17); Carbon Dioxide 32 mmol/L (22.0-30.0); Creatinine,Serum 1.10 mg/dl (0.52-1.04); Estimated Glomerular Filt Rate 48 ml/min (>60); GFR (African American) 58 ML/MIN (>60)
[2025-02-20 17:48] LABS: Albumin/Globulin Ratio 1.8 (1.1-1.8); Alkaline Phosphatase 85 U/L (38-126); Bilirubin,Total 0.3 mg/dl (0.2-1.3); Calcium 9.6 mg/dl (8.4-10.2); Cholesterol 182 mg/dl (140-200); Globulin 2.5 g/dL (1.3-3.2); Glucose 88 mg/dl (74-100); HDL Cholesterol 38 mg/dl (40-60); Total Protein,Serum 6.9 g/dl (6.3-8.2); Triglycerides 177 mg/dl (30-150)
[2025-02-20 18:08] LABS: Uric Acid 3.6 mg/dl (2.5-6.2)
[2025-02-20 18:49] LABS: Hemoglobin A1C 5.9 % (4.0-6.0)
--- OUTSIDE RECORDS SUMMARY | 2025-02-21 10:33 | XMS_ITS | Encounter Summary ---
Author Organization Healthcare Address [address] [place] [address] Care Team Providers Care Staffing Analyst Name Role Phone Hema Velazquez MD Primary Care Provider [phone] Lawanda Man CCC-DIRECTOR OF PARKS AND RECREATION Unavailable [phone] Reason for Visit * Auth/Cert Specialty Diagnoses / Procedures Referred By Contac t Referred To Contact Diagnoses Osteomyelitis of mandible Osteomyelitis Of Mandible Procedures WA BONE-SKIN GRAFT, MICROVASCULAR LEFT Fibula Free Flap For Mandible Reconstruction, Sulcusplasty, Hardware Removal, Neck Dissection MANDIBULECTOMY Romeo Ochoa MD [address] [place] [address] Phone: tel: fax: [facility] [address] [place] [address] Phone: tel: Referral ID Status Reason Start Date Expiration Date Visits Re quested Visits Authorized [id number] 1 1 Encounter Details Date Type Department Care Team (Late st Contact Info) Description 01/18/2021 Lab Requisition [facility] [address] [place] [address] Erika Willard MD [address] [facility] 7th [facility] [address] [place] [address] Encounter for general adult medical [...] at day 2 01/20/2021 8:34 AM EDT [facility] Swab (Nares and Rena Rectal) 01/18/2021 10:59 AM EDT 01/18/2021 11:50 AM EDT us Erika Reyes MD LAB MICROBIOLOGY - GENERAL ORDERABLES Final Result [facility] [address] [place] [address] documented in this encounter Visit Diagnoses Diagnosis Encounter for general adult medical examination without abnormal findings documented in this encounter Care Teams Staffing Analyst Relationship Specialty Start Date End Date Hema Velazquez MD [facility]0 [facility] [address] [place] [id number] PCP - General 12/18/20 Lawanda Man, [facility]-DIRECTOR OF PARKS AND RECREATION [address] [facility] [id number] [place] [address] Speech Language Pathologist Speech Pathology 06/28/22 documented as of this encounter
--- OUTSIDE RECORDS SUMMARY | 2025-02-21 10:33 | XMS_ITS | Encounter Summary ---
Author Organization Healthcare Address [address] [place] [address] Care Team Providers Care Perfect Binder Setter Name Role Phone Hema Velazquez MD Primary Care Provider [phone] Lawanda Man CCC-LICENSED REAL ESTATE BROKER Unavailable [phone] Reason for Visit * Reason Onset Date Comments HCN Clinical Concern/Question 01/14/2025 Encounter Details Date Type Department Care Team (Late st Contact Info) Description 01/14/2025 Telephone [facility] General Surgery [address], [address]st [place] [address] Live Mayes MD [address] [facility] [address] [place] [address] HCN Clinical Concern/Question Social History Tobacco Use Types Packs/Day Years [...] Jessie Gardiner RN documented in this encounter Miscellaneous Notes * Telephone Encounter - Lelia Domínguez - 01/14/2025 4:38 PM EDT Talked with Lexy, daughter. She explains that the tube area close to the button is collapsing. Able to flush with coke and able to give meds requesting to be seen and have tube replaced. Informed tocome to clinic appointment 01/21 @ 9am. * Telephone Encounter - Diana Martin - 01/14/2025 3:33 PM EDT Clinical Concern/Question Reason for Call: Tube is starting to collapse and said it is hard. They were calling to exchange g-tube. Thanks! Best contact number: Other: [phone] Optimal time of day to reach caller: ANYTIME Additional comments/information from caller: None Note: Please do not reply to this message. Follow-up communication and further actions as a result of this message need to be communicated with the patient directly, if the patient is not active onMyChart. If the patient is active on MyChart, they will receive notification of the communication/outcome via Billawayhart. documented in this encounter Plan of Treatment [...] documented as of this encounter Care Teams Perfect Binder Setter Relationship Specialty Start Date End Date Hema Velazquez MD [address] [place] [address] [address] [place] [address] PCP - General 12/18/20 Lawanda Man, [facility]-LICENSED REAL ESTATE BROKER [address] [facility] [id number] [place] [address] Speech Language Pathologist Speech Pathology 06/28/22 documented as of this encounter
--- OUTSIDE RECORDS SUMMARY | 2025-02-21 10:33 | XMS_ITS | Encounter Summary ---
Author Organization Healthcare Address [address] [place] [address] Care Team Providers Care Veterinarian Poultry Name Role Phone Hema Velazquez MD Primary Care Provider [phone] Lawanda Man CCC-HEATING AND COOLING SYSTEMS ENGINEER Unavailable [phone] Encounter Details Date Type Department Care Team (Latest Contact Info) Description 02/04/2025 Travel Social History Tobacco Use Types Packs/Day Years [...] Jessie Isidro RN documented in this encounter Plan of [...] documented as of this encounter Care Teams Veterinarian Poultry Relationship Specialty Start Date End Date Hema Velazquez MD [address] [place], [place] [address] [address] [place] [address] PCP - General 12/18/20 Lawanda Man [facility]-HEATING AND COOLING SYSTEMS ENGINEER [address] [facility] [id number] [place] [address] Speech Language Pathologist Speech Pathology 06/28/22 documented as of this encounter
--- OUTSIDE RECORDS SUMMARY | 2025-02-21 10:33 | XMS_ITS | Clinical Summary ---
Author Organization [facility] Address [address] [place] [address] Care Team Providers Care Wringer And Setter Name Role Phone Hema Velazquez MD Primary Care Provider [phone] Lawanda Man [facility]-TECHNICAL SUPPORT DIRECTOR Unavailable [phone] Allergies Active Allergy Reactions Criticality Noted Date [...] times a day. 60 tablet 11 01/30/20 21 Active Additional Information Patient not taking.Reported on 02/04/2025 levETIRAcetam (Keppra) 500 MG tablet Take 1 tablet (500 mg total) by mouth 1 (one) time each day. 30 tablet 01/31/20 21 Active Additional Information Patient taking differently:500 mgPer G TubeDaily, Reported on 02/04/2025 albuterol (2.5 MG/3ML) 0.083% nebulizer solution Take 3 mL (2.5 mg total) by nebulization 4 (four) times a day. 75 mL 11 01/30/20 21 Active Additional Information Patient taking differently:2.5 mg NebulizationAs needed, Reported on 02/04/2025 amLODIPine (Norvasc) 5 MG tablet Take 1 tablet (5 mg total) by mouth 1 (one) time each day. 30 tablet 11 01/31/20 21 Active Additional Information Patient taking differently:5 mgPer G TubeDaily, Reported on 02/04/2025 bacitracin 500 UNIT/GM ointment Apply thin layer to incision once daily 14 g 01/31/20 21 Active Additional Information Patient not taking.Reported on 02/04/2025 chlorhexidine (Peridex) 0.12 % solution Use 15 mL in the mouth or throat 4 (four) times a day. 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, [...] Encounters Date Type Department Care Team Description 02/04/2025 12:30 PM EDT Office Visit [facility] General Surgery [address], 1st [place] [address] Bre Del Cid APRN Feeding tube dysfunction, initial encounter (Primary Dx) 02/04/2025 Travel 01/14/2025 Telephone [facility] General Surgery [address], 1[address] [place] [address] Live Mayes MD HCN Clinical Concern/Question from Last 3 Months Family History Medical [...] Mass Index 22.05 02/04/2025 11:53 AM EDT Plan of Treatment Health Maintenance Due Date Last Done Comments Dental Oral Exam 1945 Dental Prophylaxis 1945 Dental X-Ray: Bitewings 1946 Dental X-Ray: Full Mouth 1946 [facility]-Bone Density Scan 1946 [facility]-Hepatitis C Screening 1946 [facility]-Medicare Annual Wellness (AWV) 1946 [facility]-Infant/Child/Adol SDOH Screenings 1946 [facility]- SDOH Screenings 1964 [facility]-Adult SDOH Screenings 1964 [facility]-Pneumococcal Vaccine: 50+ Years (1 of 2 - PCV) 1965 [facility]-Zoster Vaccines (1 of 2) 1965 [facility]-EMMRG-80 Vaccine (3 - Moderna risk series) 11/11/2020 10/14/2020, 09/16/2020 [facility]-RSV Vaccine: 60+ Years or (1 - 1-dose 75+ series) 2021 [facility]-Depression Screening 04/02/2025 04/02/2024 [facility]-Influenza Vaccine (#1) 2025 [facility]-DTaP,Tdap,and Td Vaccines (3 - Td [...] this topic Medical Devices Implanted Type Area Coordinator Of Evaluation Device Identifier Shelf Expiration Date Model / Serial / Lot Screw 1.85mm Ti Matrixwave Mmf Self Drill 8mm - [id number] Implanted:Qty: 6 on 01/12/2021 by Romeo Ochoa MD at [facility] Left: [employer] [id number] 04.503.82 5.01 / / Plate 7x23h Angle Recon Right2 - [id number] Implanted:Qty: 1 on 01/12/2021 by Romeo Ochoa MD at [facility] Left: [employer] [id number] 04.503.73 3 / / Plate Double Angle Recon Small 2.0mm - [id number] Implanted:Qty: 1 on 01/12/2021 by Romeo Ochoa MD at [facility] Left: [employer] [id number] 04.503.73 4 / / Screw 2.4mm Matrixmandible St 8mm - [id number] Implanted:Qty: 2 on 01/12/2021 by Romeo Ochoa MD at [facility] Left: [employer] [id number] 04.503.43 8.01 / / Screw 2.4mm Matrixmandible Lock St 8mm - [id number] Implanted:Qty: 10 on 01/12/2021 by Romeo Ochoa MD at [facility] Left: [employer] [id number] 04.503.63 8.01 / / Screw 2.4mm Matrixmandible Lock St 10mm - [id number] Implanted:Qty: 5 on 01/12/2021 by Romeo Ochoa MD at [facility] Left: [employer] [facility]-[id number] 04.503.64 0.01 / / Procedures Procedure Name Priority Date/Time Associated Diagnosis Comments FEEDING TUBE REPLACEMENT Routine 02/04/2025 12:30 PM EDT Feeding tube dysfunction, initial encounter FEEDING TUBE REMOVAL Routine 02/04/2025 12:30 PM EDT Feeding tube dysfunction, initial encounter from Last 3 Months Results * Feeding Tube Removal (02/04/2025 12:30 PM EDT) Narrative Bre Del Cid APRN - 02/04/2025 12:30 PM EDT Bre Del Cid APRN 02/05/2025 6:25 PM Feeding Tube Removal Performed by: Bre Del Cid APRN Authorized by: Bre Del Cid APRN Consent: Consent obtained: Verbal Consent given by: Patient Lilly protocol: Procedure explained and questions answered to [...] ORDERAB LES Final Result * Feeding Tube Replacement (02/04/2025 12:30 PM EDT) Narrative Bre Del Cid APRN - 02/04/2025 12:30 PM EDT Bre Del Cid APRN 02/05/2025 6:25 PM Feeding Tube Replacement Performed by: Bre Del Cid APRN Authorized by: Bre Del Cid APRN Consent: Consent obtained: Verbal Consent given by: Patient Risks discussed: Bleeding, infection and pain Lilly protocol: Procedure explained and questions answered to [...] Procedure completion: Tolerated well, no immediate complications us Bre E Maria Eugenia CORTEZ IN CLINIC/BEDSIDE ORDERAB LES Final Result from Last 3 Months Insurance [employer] MEDICARE [employer] CLAIM[employer] DENTAL Advance Directives Documents on File Type Date Recorded Patient Elect Equip Maint Eng Expl anation Advance Directives and Livin g Will 05/23/2021 2:45 PM Care Teams Wringer And Setter Relationship Specialty Start Date End Date Hema Velazquez MD [address] [facility] [address] [place] [address] PCP - General 12/18/20 Lawanda Man, [facility]-TECHNICAL SUPPORT DIRECTOR [address] [facility] [id number] [place] [address] Speech Language Pathologist Speech Pathology 06/28/22
--- OUTSIDE RECORDS SUMMARY | 2025-02-21 10:33 | XMS_ITS | Encounter Summary ---
Author Organization Healthcare Address [address] [place] [address] Care Team Providers Care Can Closing Machine Tender Name Role Phone Hema Velazquez MD Primary Care Provider [phone] Lawanda Man CCC-MAINTENANCE PERSON Unavailable [phone] Encounter Details Date Type Department Care Team (Late st Contact Info) Description 03/16/[address] [facility] [address] [place] [address] [address] [place] [address] Dental, Provider, DDS [facility] [place] [address] Social History Tobacco Use Types Packs/Day Years [...] documented as of this encounter Care Teams Can Closing Machine Tender Relationship Specialty Start Date End Date Hema Velazquez MD [facility] [address] [place] [id number] PCP - General 12/18/[address] [facility]-MAINTENANCE PERSON 0 [facility] [id number] [place] [address] Speech Language Pathologist Speech Pathology 06/28/22 documented as of this encounter
--- OUTSIDE RECORDS SUMMARY | 2025-02-21 10:33 | XMS_ITS | Encounter Summary ---
Author Organization Healthcare Address [address] [place] [address] Care Team Providers Care Car Mechanic Name Role Phone Hema Velazquez MD Primary Care Provider [phone] Lawanda Man CCC-MACHINE ZIPPER TRIMMER Unavailable [phone] Reason for Visit * Reason Comments Med Refill Encounter Details Date Type Department Care Team (Late st Contact Info) Description 12/31/2021 Refill [facility] [address], [address] [place] [address] Gordo Kaplan MD [address] [facility] [address] [place] [address] Rash and nonspecific skin eruption [...] documented as of this encounter Care Teams Car Mechanic Relationship Specialty Start Date End Date Hema Velazquez MD [address] [facility] [address] [place] [address] PCP - General 12/18/20 Lawanda Man [facility]-MACHINE ZIPPER TRIMMER [address] [facility] [id number] [place] [address] Speech Language Pathologist Speech Pathology 06/28/22 documented as of this encounter
== END 2025-02-20 23:59 | disposition home or self-care (01) ==
LOC: LAB.DROPOF 02-21 10:31
PROVIDERS: PCP Internal Medicine; Visit Provider Internal Medicine
DX: E11.42 Type 2 diabetes mellitus with diabetic polyneuropathy (principal); E11.59 Type 2 diabetes mellitus with other circulatory complications; I10 Essential (primary) hypertension; E78.5 Hyperlipidemia, unspecified; M10.9 Gout, unspecified
CPT/HCPCS: 80053; 80061; 83036; 84550; 85025

== ENCOUNTER 2025-02-21 14:30 | Outpatient (CLI) | payer MEDICARE, SELFPAY ==
--- OUTSIDE RECORDS SUMMARY | 2025-02-04 12:30 | XMS_ITS | Encounter Summary ---
Author Organization Healthcare Address [address] [place] [address] Care Team Providers Care Photoengraver Apprentice Name Role Phone Hema Velazquez MD Primary Care Provider [phone] Lawanda Man CCC-INSTRUMENT SHOP SUPERVISOR Unavailable [phone] Reason for Visit * Reason Comments Follow-up Encounter Details Date Type Department Care Team (Late st Contact Info) Description 02/04/2025 12:30 PM EDT Office [facility] [address], [address] [place] [address] Bre Del Cid, VENUE MANAGER [address] [place] [address] Feeding tube dysfunction, initial encounter (Primary Dx) Social History Tobacco Use Types Packs/Day Years [...] on file documented as of this encounter Last Filed Vital Signs Vital Sign Reading Time Taken Comments Blood Pressure 201/77 02/04/2025 11:55 AM EDT Pulse 48 02/04/2025 11:55 AM EDT Temperature 36.6 C (97.8 F) 02/04/2025 11:53 AM EDT Respiratory Rate 16 02/04/2025 11:53 AM EDT Oxygen Saturation 99% 02/04/2025 11:53 AM EDT Inhaled Oxygen Concentration - - Weight 52.3 kg (115 lb 4.8 oz) 02/04/2025 11:53 AM EDT Height 154 cm (5' 0.63 ) 02/04/2025 11:53 AM EDT Body Mass Index 22.05 02/04/2025 11:53 AM EDT documented in this encounter Functional Status * Are you [...] documented in this encounter Miscellaneous Notes * Progress Notes - Bre Del Cid APRN - 02/04/2025 12:30 PM EDTAssociated Order(s): Feeding Tube Removal Post-Procedure Diagnose(s): Feeding tube dysfunction, initial encounter Patient ID: Gunjan Horner is a 79 y.o. female. No diagnosis found. Feeding Tube Removal Performed by: Bre Del Cid APRN Authorized by: Bre Del Cid APRN Consent: Consent obtained: Verbal Consent given by: Patient Aurora protocol: Procedure explained and questions answered to patient or proxy's satisfaction: yes Relevant documents present and verified: yes Test results available: no Imaging studies available: no Required blood products, implants, devices, and special equipment available: no Site/side marked: yes Immediately prior to procedure, a time out was called: yes Patient identity confirmed: Verbally with patient Pre-procedure details: Skin preparation: Sterile normal saline Sedation: Sedation type: None Anesthesia: Anesthesia method: None Procedure specific details: Removed 20Fr 2cm matilde-tube Post-procedure details: Procedure completion: Tolerated well, no immediate complications * Progress Notes - Bre Del Cid APRN - 02/04/2025 12:30 PM EDTAssociated Order(s): Feeding Tube Replacement Post-Procedure Diagnose(s): Feeding tube dysfunction, initial encounter Patient ID: Gunjan Horner is a 79 y.o. female. Encounter Diagnosis Name Primary? Feeding tube dysfunction, initial encounter Yes Feeding Tube Replacement Performed by: Bre Del Cid APRN Authorized by: Bre Del Cid APRN Consent: Consent obtained: Verbal Consent given by: Patient Risks discussed: Bleeding, infection and pain Aurora protocol: Procedure explained and questions answered to patient or proxy's satisfaction: yes Relevant documents present and verified: yes Test results available: no Imaging studies available: no Required blood products, implants, devices, and special equipment available: no Site/side marked: yes Immediately prior to procedure, a time out was called: yes Patient identity confirmed: Verbally with patient Pre-procedure details: Old tube type: Terence-lynne tube. Old tube size: 20 Fr, 2 cm. Sedation: Sedation type: None Anesthesia: Anesthesia method: None Procedure details: Patient position: Supine Tube type: Terence-Lynne. Tube size: 20Fr, 2cm. Bulb inflation fluid: Sterile water Post-procedure details: Procedure completion: Tolerated well, no immediate complications documented in this encounter Plan of Treatment Not on file documented as of this encounter Procedures Procedure Name Priority Date/Time Associated Diagnosis Comments FEEDING TUBE REMOVAL Routine 02/04/2025 12:30 PM EDT Feeding tube dysfunction, initial encounter FEEDING TUBE REPLACEMENT Routine 02/04/2025 12:30 PM EDT Feeding tube dysfunction, initial encounter documented in this encounter Results * Feeding Tube Replacement (02/04/2025 12:30 PM EDT) Narrative Bre Del Cid APRN - 02/04/2025 12:30 PM EDT Bre Del Cid APRN 02/05/2025 6:25 PM Feeding Tube Replacement Performed by: Bre Del Cid APRN Authorized by: Bre Del Cid APRN Consent: Consent obtained: Verbal Consent given by: Patient Risks discussed: Bleeding, infection and pain Aurora protocol: Procedure explained and questions answered to patient or proxy's satisfaction: yes Relevant documents present and verified: yes Test results available: no Imaging studies available: no Required blood products, implants, devices, and special equipment available: no Site/side marked: yes Immediately prior to procedure, a time out was called: yes Patient identity confirmed: Verbally with patient Pre-procedure details: Old tube type: Terence-lynne tube. Old tube size: 20 Fr, 2 cm. Sedation: Sedation type: None Anesthesia: Anesthesia method: None Procedure details: Patient position: Supine Tube type: Terence-Lynne. Tube size: 20Fr, 2cm. Bulb inflation fluid: Sterile water Post-procedure details: Procedure completion: Tolerated well, no immediate complications Bre Del Cid APRN IN CLINIC/BEDSIDE ORDERAB LES Final Result * Feeding Tube Removal (02/04/2025 12:30 PM EDT) Narrative Bre Del Cid APRN - 02/04/2025 12:30 PM EDT Bre Del Cid APRN 02/05/2025 6:25 PM Feeding Tube Removal Performed by: Bre Del Cid APRN Authorized by: Bre Del Cid APRN Consent: Consent obtained: Verbal Consent given by: Patient Aurora protocol: Procedure explained and questions answered to patient or proxy's satisfaction: yes Relevant documents present and verified: yes Test results available: no Imaging studies available: no Required blood products, implants, devices, and special equipment available: no Site/side marked: yes Immediately prior to procedure, a time out was called: yes Patient identity confirmed: Verbally with patient Pre-procedure details: Skin preparation: Sterile normal saline Sedation: Sedation type: None Anesthesia: Anesthesia method: None Procedure specific details: Removed 20Fr 2cm matilde-tube Post-procedure details: Procedure completion: Tolerated well, no immediate complications Bre Del Cid APRN IN CLINIC/BEDSIDE ORDERAB LES Final Result documented in this encounter Visit Diagnoses Diagnosis Feeding tube dysfunction, initial encounter- Primary documented in this encounter Additional Health Concerns Assessment Noted Time A fall risk assessment has been complete d for the patient 02/04/2025 11:53 AM EDT A Body Mass Index follow-up plan has been documented for the patient 02/05/2025 6:25 PM EDT documented as of this encounter Care Teams Photoengraver Apprentice Relationship Specialty Start Date End Date Hema Velazquez MD [address] [place] [address] [address] [place] [address] PCP - General 12/18/20 Lawanda Man [facility]-INSTRUMENT SHOP SUPERVISOR 0 [facility] [id number] [place] [address] Speech Language Pathologist Speech Pathology 06/28/22 documented as of this encounter
--- OUTSIDE RECORDS SUMMARY | 2025-02-24 11:02 | XMS_ITS | Encounter Summary ---
Author Organization Healthcare Address [address] [place] [address] Care Team Providers Care Billposting Supervisor Name Role Phone Hema Velazquez MD Primary Care Provider [phone] Lawanda Man CCC-SCHEDULE ANALYST Unavailable [phone] Encounter Details Date Type Department Care Team [...] documented as of this encounter Care Teams Billposting Supervisor Relationship Specialty Start Date End Date Hema Velazquez MD [address] [place], [place] [address] [address] [place] [address] PCP - General 12/18/20 Lawanda Man [facility]-SCHEDULE ANALYST [address] [facility] [address] [place] [address] Speech Language Pathologist Speech Pathology 06/28/22 documented as of this encounter
--- OUTSIDE RECORDS SUMMARY | 2025-02-24 11:02 | XMS_ITS | Encounter Summary ---
Author Organization Healthcare Address [address] [place] [address] Care Team Providers Care Computer Lab Para Professional Name Role Phone Hema Velazquez MD Primary Care Provider [phone] Lawanda Man CCC-CHILDREN'S COUNSELOR Unavailable [phone] Reason for Visit * Auth/Cert Specialty Diagnoses / Procedures Referred By Contac t Referred To Contact Diagnoses Osteomyelitis of mandible Osteomyelitis Of Mandible Procedures SD BONE-SKIN GRAFT, MICROVASCULAR LEFT Fibula Free Flap For Mandible Reconstruction, Sulcusplasty, Hardware Removal, Neck Dissection MANDIBULECTOMY Romeo Ochoa MD [address] [facility] [address] [place] [address] Phone: tel: fax: [facility] [address] [place] [address] Phone: tel: Referral ID Status Reason Start Date Expiration Date Visits Re quested Visits Authorized [id number] 1 1 Encounter Details Date Type Department Care Team (Late st Contact Info) Description 01/18/2021 Lab Requisition [facility] [address] [place] [id number] Erika Willard MD [address] [facility] 7th [facility] [address] [place] [address] Encounter for general adult medical [...] at day 2 01/20/2021 8:[address] [facility] Swab (Nares and Rena Rectal) 01/18/2021 10:59 AM EDT 01/18/2021 11:50 AM EDT us Erika Reyes MD LAB MICROBIOLOGY - GENERAL ORDERABLES Final Result [facility] [address] [place] [address] documented in this encounter Visit Diagnoses Diagnosis Encounter for general adult medical examination without abnormal findings documented in this encounter Care Teams Computer Lab Para Professional Relationship Specialty Start Date End Date Hema Velazquez MD [facility] [address] [place] [id number] PCP - General 12/18/20 Lawanda Man, [facility]-CHILDREN'S COUNSELOR [address] [facility] [id number] [place] [address] Speech Language Pathologist Speech Pathology 06/28/22 documented as of this encounter
--- OUTSIDE RECORDS SUMMARY | 2025-02-24 11:02 | XMS_ITS | Clinical Summary ---
Author Organization [facility] Address [address] [place] [address] Care Team Providers Care Ratoprinter Name Role Phone Hema Velazquez MD Primary Care Provider [phone] Lawanda Man [facility]-MEDICAL TECHNOLOGIST CHIEF Unavailable [phone] Allergies Active Allergy Reactions Criticality Noted Date [...] (05/05/2021): Added automatically from request for surgery [id number] Wound of left leg 02/24/2021 Overview (02/24/2021): Added automatically from request for surgery [id number] History of facial fracture 02/10/2021 Mucus plugging [...] (01/22/2021): Added automatically from request for surgery [id number] 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, [...] Description 02/04/2025 12:30 PM EDT Office Visit [facility] [address] [place] [address] Bre Del Cid APRN Feeding tube dysfunction, initial encounter (Primary Dx) 02/04/2025 Travel 01/14/2025 Telephone [facility] [address] [place] [address] Live Mayes MD [facility] Clinical [...] 1965 UKY-Zoster Vaccines (1 of 2) 1965 [id number]-85 Vaccine (3 - Moderna risk series) 11/11/2020 [...] this topic Medical Devices Implanted Type Area Resource Engineer Device Identifier Shelf Expiration Date Model / Serial / Lot Screw 1.85mm Ti Matrixwave Mmf Self Drill 8mm - [id number] Implanted:Qty: 6 on 01/12/2021 by Romeo Ochoa MD at [facility] Left: [employer] [id number] 04.503.82 5.01 / / Plate 7x23h Angle Recon Right2 - [id number] Implanted:Qty: 1 on 01/12/2021 by Romeo Ochoa MD at [facility] Left: [employer] [id number] 04.503.73 3 / / Plate Double Angle Recon Small 2.0mm - [id number] Implanted:Qty: 1 on 01/12/2021 by Romeo Ochoa MD at [facility] Left: [employer] [id number] 04.503.73 4 / / Screw 2.4mm Matrixmandible St 8mm - [id number] Implanted:Qty: 2 on 01/12/2021 by Romeo Ochoa MD at [facility] Left: [employer] [place]-[id number] 04.503.43 8.01 / / Screw 2.4mm Matrixmandible Lock St 8mm - [id number] Implanted:Qty: 10 on 01/12/2021 by Romeo Ochoa MD at [facility] Left: [employer] [id number] 04.503.63 8.01 / / Screw 2.4mm Matrixmandible Lock St 10mm - [id number] Implanted:Qty: 5 on 01/12/2021 by Romeo Ochoa MD at [facility] Left: [employer]ible [employer] [facility]-[id number] 04.503.64 0.01 / / Procedures Procedure Name [...] Consent obtained: Verbal Consent given by: Patient Rison protocol: Procedure explained and questions answered to [...] Patient Risks discussed: Bleeding, infection and pain Rison protocol: Procedure explained and questions answered to [...] Final Result from Last 3 Months Insurance Goal Zero MEDICARE Goal Zero CLAIMS DENTAL Advance Directives Documents on File Type Date Recorded Patient Rehabilitation Manager Expl anation Advance Directives and Livin g Will 05/23/2021 2:45 PM Care Teams Ratoprinter Relationship Specialty Start Date End Date Hema Velazquez MD [address] [facility] [address] [place] [address] PCP - General 12/18/20 Lawanda Man, [facility]-MEDICAL TECHNOLOGIST CHIEF [address] [facility] [id number] [place] [address] Speech Language Pathologist Speech Pathology 06/28/22
--- OUTSIDE RECORDS SUMMARY | 2025-02-24 11:02 | XMS_ITS | Encounter Summary ---
Author Organization Healthcare Address [address] [place] [address] Care Team Providers Care Service Car Operator Name Role Phone Hema Velazquez MD Primary Care Provider [phone] Lawanda Man CCC-SALAD MAKER Unavailable [phone] Encounter Details Date Type Department Care Team (Late st Contact Info) Description 03/16/2021 Telephone [facility] battery tester field [facility] [address] [place] [address] [address] [place] [address] Dental, Provider, DDS [facility] [place] [address] Social History Tobacco Use Types [...] documented as of this encounter Care Teams Service Car Operator Relationship Specialty Start Date End Date Hema Velazquez MD [facility] [address] [place] [id number] PCP - General 12/18/20 Lawanda Man [facility]-SALAD MAKER 0 [facility] [id number] [place] [address] Speech Language Pathologist Speech Pathology 06/28/22 documented as of this encounter
--- OUTSIDE RECORDS SUMMARY | 2025-02-24 11:02 | XMS_ITS | Encounter Summary ---
Author Organization Healthcare Address [address] [place] [address] Care Team Providers Care Social Security Assessor Name Role Phone Hema Velazquez MD Primary Care Provider [phone] Lawanda Man CCC-PSYCHIATRIC NP Unavailable [phone] Reason for Visit * Reason Onset Date Comments [facility]CN Clinical Concern/Question 01/14/2025 Encounter Details Date Type Department Care Team (Late st Contact Info) Description 01/14/[address] [facility] General Surgery [address], [address] [place] [address] Live Mayes MD [address] [facility] [address] [place] [address] [facility] Clinical Concern/Question Social History [...] 5:00 PM EDT Jesise Isidro RN * Do you have serious [...] exchange g-tube. Thanks! Best contact number: Other: [phone] Optimal time of day to reach caller: ANYTIME Additional comments/information from caller: None Note: Please do not reply to this message. Follow-up communication and further actions as a result of this message need to be communicated with the patient directly, if the patient is not active onMyChart. If the patient is active on MyChart, they will receive notification of the communication/outcome via [employer]. documented in this encounter Plan of Treatment [...] documented as of this encounter Care Teams Social Security Assessor Relationship Specialty Start Date End Date Hema Velazquez MD [address] [place] [address] [address] [place] [address] PCP - General 12/18/20 Lawanda Man, [facility]-PSYCHIATRIC NP [address] [facility] [id number] [place] [address] Speech Language Pathologist Speech Pathology 06/28/22 documented as of this encounter
--- OUTSIDE RECORDS SUMMARY | 2025-02-24 11:02 | XMS_ITS | Encounter Summary ---
Author Organization Healthcare Address [address] [place] [address] Care Team Providers Care Page Designer Name Role Phone Hema Velazquez MD Primary Care Provider [phone] aLwanda Man CCC-ROLL FORMING MACHINE SET UP OPERATOR Unavailable [phone] Reason for Visit * Reason Comments Med Refill Encounter Details Date Type Department Care Team (Late st Contact Info) Description 12/31/2021 Refill [facility] [address], [address] [place] [address] Gordo Kaplan MD [address] [facility] [address] [place] [address] Rash and nonspecific skin eruption [...] documented as of this encounter Care Teams Page Designer Relationship Specialty Start Date End Date Hema Velazquez MD [address] [facility] [address] [place] [address] PCP - General 12/18/20 Lawanda Man [facility]-ROLL FORMING MACHINE SET UP OPERATOR [address] [facility] [id number] [place] [address] Speech Language Pathologist Speech Pathology 06/28/22 documented as of this encounter
== END 2025-02-21 23:59 | disposition home or self-care (01) ==
LOC: LAB.DROPOF 02-24 10:49
PROVIDERS: PCP Nurse Practitioner Family; Visit Provider Nurse Practitioner Family
DX: E11.42 Type 2 diabetes mellitus with diabetic polyneuropathy (principal); E11.59 Type 2 diabetes mellitus with other circulatory complications
CPT/HCPCS: 82043; 82570